=== PATIENT | female | born 1960 | race Hispanic/Latino ===

== ENCOUNTER 2017-09-08 11:03 | Inpatient (IN) | payer MEDICAID ==
[2017-09-08] MEDS ORDERED: TYLENOL ONE (12:06)
[2017-09-08] MEDS ORDERED: MORPHINE ONE ×2 (12:07→16:24)
[2017-09-08] MEDS ORDERED: NACL 0.9% 1000 ML 1,000 ML ONE (14:33)
--- NOTE | 2017-09-08 15:29 | XRay Report ---
Portable chest: Chest pain. There is a mild increase in interstitial pattern at the lung bases but there is no infiltrate or nodule. The mediastinal contour is unremarkable. There is no vascular congestion. Degenerative changes are noted in the right shoulder joint and the distal right clavicle appears absent possibly being fractured or amputated. Impression: No acute findings.
--- NOTE | 2017-09-08 15:51 | Emergency Department Report ---
ED Shortness of Breath HPI - General Chief Complaint: Dyspnea/Respdistress Stated Complaint: KAREN Time Seen by Provider: 09/08/17 15:46 Source: patient, EMS Mode of arrival: Stretcher Limitations: No Limitations - History of Present Illness MD Complaint: shortness of breath, chest pain, pain with inspiration, "asthma attack" -: Sudden, hour(s) (3 hours) Severity: severe Pain Scale: 8 Quality: throbbing Consistency: constant Improves With: oxygen, rest, bronchodilators Worsens With: lying flat, exertion, movement Known History Of: COPD, asthma Associated Symptoms: chest pain, pain with inspiration, cough, orhopnia Treatments Prior to Arrival: oxygen, bronchodilator - Related Data Home Oxygen Therapy: No Home Medications Medication Instructions Recorded Confirmed Last Taken Naproxen Sodium [Aleve] 220 mg PO Q12H PRN 09/08/17 09/08/17 Unknown One Daily Womens 50 Plus Tab 1 each PO QDAY 09/08/17 09/08/17 Unknown Allergies Allergy/AdvReac Type Severity Reaction Status Date / Time No Known Allergies Allergy Verified 02/19/14 19:44 ED Review of Systems ROS: Stated complaint: KAREN Other details as noted in HPI Comment: All other systems reviewed and negative Constitutional: malaise, weakness. denies: chills, fever Eyes: denies: eye pain, eye discharge, vision change ENT: denies: ear pain, throat pain Respiratory: cough, orthopnea, shortness of breath, SOB with exertion, wheezing Cardiovascular: chest pain. denies: palpitations Endocrine: no symptoms reported Gastrointestinal: denies: abdominal pain, nausea, diarrhea Genitourinary: denies: urgency, dysuria, discharge Musculoskeletal: denies: back pain, joint swelling, arthralgia Skin: denies: rash, lesions Neurological: weakness. denies: headache, paresthesias Psychiatric: denies: anxiety, depression Hematological/Lymphatic: denies: easy bleeding, easy bruising ED Past Medical Hx - Past Medical History Previous Medical History?: Yes Hx Congestive Heart Failure: No Hx Diabetes: No Hx Arthritis: Yes Hx Asthma: Yes Hx COPD: Yes Hx HIV: No - Surgical History Past Surgical History?: Yes Additional Surgical History: right leg surgery x2, right knee replacement, left wrist surgery x2, tubal - Family History Family history: no significant - Social History Smoking Status: Current Every Day Smoker Substance Use Type: None - Medications Home Medications: Home Medications Medication Instructions Recorded Confirmed Last Taken Type Naproxen Sodium [Aleve] 220 mg PO Q12H PRN 09/08/17 09/08/17 Unknown History One Daily Womens 50 Plus Tab 1 each PO QDAY 09/08/17 09/08/17 Unknown History ED Physical Exam - General Limitations: No Limitations General appearance: alert, in no apparent distress - Head Head exam: Present: atraumatic, normocephalic - Eye Eye exam: Present: normal appearance, other (scleral pallor) - ENT ENT exam: Present: mucous membranes dry - Neck Neck exam: Present: normal inspection - Respiratory Respiratory exam: Present: normal lung sounds bilaterally. Absent: respiratory distress, wheezes - Cardiovascular Cardiovascular Exam: Present: regular rate, normal rhythm. Absent: systolic murmur, diastolic murmur, rubs, gallop - GI/Abdominal GI/Abdominal exam: Present: soft, normal bowel sounds - Rectal Rectal exam: Present: heme (+) stool - Extremities Exam Extremities exam: Present: normal inspection - Back Exam Back exam: Present: normal inspection - Neurological Exam Neurological exam: Present: alert, oriented X3 - Psychiatric Psychiatric exam: Present: normal affect, normal mood - Skin Skin exam: Present: warm, dry, intact, normal color. Absent: rash ED Course Vital Signs 09/08/17 09/08/17 09/08/17 11:03 11:04 12:00 Temperature 97.9 F Pulse Rate 112 H 106 H 102 H Respiratory 22 24 24 Rate Blood Pressure 117/51 117/52 O2 Sat by Pulse 98 100 99 Oximetry 09/08/17 09/08/17 09/08/17 13:00 14:00 14:52 Temperature Pulse Rate 103 H 109 H Respiratory 23 19 20 Rate Blood Pressure 111/47 115/51 O2 Sat by Pulse 98 90 100 Oximetry 09/08/17 09/08/17 09/08/17 15:01 15:11 15:21 Temperature Pulse Rate 107 H 99 H 102 H Respiratory 16 20 15 Rate Blood Pressure 115/51 108/53 101/49 O2 Sat by Pulse 97 97 96 Oximetry 09/08/17 09/08/17 09/08/17 15:31 15:41 15:51 Temperature Pulse Rate 105 H 99 H 98 H Respiratory 18 20 22 Rate Blood Pressure 115/63 115/63 115/63 O2 Sat by Pulse 97 100 99 Oximetry 09/08/17 09/08/17 09/08/17 16:00 16:11 16:21 Temperature Pulse Rate 99 H 98 H 98 H Respiratory 21 20 22 Rate Blood Pressure 106/58 114/61 114/61 O2 Sat by Pulse 99 98 100 Oximetry 09/08/17 09/08/17 09/08/17 16:30 16:38 16:39 Temperature 99.0 F 98.1 F Pulse Rate 100 H 97 H 92 H Respiratory 13 20 23 Rate Blood Pressure 122/66 122/66 122/66 O2 Sat by Pulse 98 99 100 Oximetry 09/08/17 09/08/17 09/08/17 16:41 16:51 16:54 Temperature 98.4 F Pulse Rate 98 H 98 H 92 H Respiratory 21 20 19 Rate Blood Pressure 122/66 122/66 118/68 O2 Sat by Pulse 98 100 100 Oximetry 09/08/17 09/08/17 17:01 17:37 Temperature Pulse Rate 95 H Respiratory 22 18 Rate Blood Pressure 98/51 O2 Sat by Pulse 100 Oximetry - Reevaluation(s) Reevaluation #1: [place] extremely low. Will type and screen patient and prepare for transfusion. 09/08/17 12:00 Reevaluation #2: Hospitalist consult for admission. Hospitalist agreed to admit 09/08/17 14:00 ED Medical Decision Making - Lab Data Result diagrams: 09/08/17 12:40 09/08/17 12:11 - Radiology Data Radiology results: image reviewed interpreted by me: No acute findings - Medical Decision Making Patient 56-year-old presents emergency room with acute copd exacerbation, and chest pain shortness of breath. Patient found to be severely anemic. Will admit patient for further evaluation and treatment of her anemia and rule out ACS. Patient currently receiving packed red blood cells in ER. Hospitalist consult for admission - Differential Diagnosis cp/ acs. sob. copd exac. Critical care attestation.: If time is entered above; I have spent that time in minutes in the direct care of this critically ill patient, excluding procedure time. ED Disposition Clinical Impression: Chest pain, Anemia, Shortness of breath, GI bleed Disposition: OP ADMIT IP TO THIS HOSP Is pt being admited?: Yes Does the pt Need Aspirin: No Condition: Critical Time of Disposition: :10
[2017-09-08] MEDS ORDERED: MORPHINE IV ONE (16:40)
[2017-09-08 16:53] LABS: Alanine Aminotransferase 13 units/L (7-56); Albumin 2.7 g/dL (3.9-5); BUN/Creatinine Ratio 26; Blood Urea Nitrogen 18 mg/dL (7-17); Calcium 8.3 mg/dL (8.4-10.2); Creatine Kinase MB 1.5 ng/mL (0.0-4.0); Hemolysis Index 1
[2017-09-08] MEDS ORDERED: DILAUDID IV PRN (16:53)
[2017-09-08] MEDS ORDERED: SODIUM CHLORIDE FLUSH SYRINGE 10 ML IV PRN (16:53)
[2017-09-08] MEDS ORDERED: ZOFRAN IV PRN (16:53)
[2017-09-08] MEDS ORDERED: TYLENOL PO PRN (16:53)
--- NOTE | 2017-09-08 16:53 | History and Physical Report ---
History of Present Illness Date of examination: 09/08/17 Date of admission: 09/08/2017 Chief complaint: Chief complaint: Dyspnea on minimal exertion History of present illness: History of Present Illness: 56-year-old female comes in for shortness of breath for minimal exertion. Also chest pain on exertion. No recent travel. No fever chills. No history of asthma. Patient has history of severe rheumatoid arthritis with deformities of the wrist and the hand. Not taking any disease modifying agents. Takes naproxen on a regular basis. No tarry stools. No hematemesis. Gets fatigued easily. Chest pain about 5 on a scale of 1-10. No diaphoresis or palpitations. ED Past Medical Hx Past Medical History Previous Medical History?: Yes Hx Arthritis: Yes Hx Asthma: Yes Hx COPD: Yes - Surgical History Past Surgical History?: Yes Additional Surgical History: right leg surgery x2, right knee replacement, left wrist surgery x2, tubal - Family History Family history: no significant - Social History Smoking Status: Current Every Day Smoker Substance Use Type: None - Medications Home Medications: Home Medications Medication Instructions Recorded Confirmed Last Taken Type Naproxen Sodium [Aleve] 220 mg PO Q12H PRN 09/08/17 09/08/17 Unknown History One Daily Womens 50 Plus Tab 1 each PO QDAY 09/08/17 09/08/17 Unknown History Review of Systems ROS: Stated complaint: KAREN Other details as noted in HPI Comment: All other systems reviewed and negative Constitutional: malaise, weakness. denies: chills, fever Eyes: denies: eye pain, eye discharge, vision change ENT: denies: ear pain, throat pain Respiratory: cough, orthopnea, shortness of breath, SOB with exertion, wheezing Cardiovascular: chest pain. denies: palpitations Endocrine: no symptoms reported Gastrointestinal: denies: abdominal pain, nausea, diarrhea Genitourinary: denies: urgency, dysuria, discharge Musculoskeletal: denies: back pain, joint swelling, arthralgia Skin: denies: rash, lesions Neurological: weakness. denies: headache, paresthesias Psychiatric: denies: anxiety, depression Hematological/Lymphatic: denies: easy bleeding, easy bruising Medications and Allergies Allergies Allergy/AdvReac Type Severity Reaction Status Date / Time No Known Allergies Allergy Verified 02/19/14 19:44 Home Medications Medication Instructions Recorded Confirmed Last Taken Type Naproxen Sodium [Aleve] 220 mg PO Q12H PRN 09/08/17 09/08/17 09/07/17 History One Daily Womens 50 Plus Tab 1 each PO QDAY 09/08/17 09/08/17 09/07/17 History Exam - Physical Exam Narrative exam: Lying in bed in slight respiratory distress and uncomfortable - Constitutional Vitals: Temp Pulse Resp BP Pulse Ox 99.0 F 97 H 20 122/66 99 09/08/17 16:38 09/08/17 16:38 09/08/17 16:38 09/08/17 16:38 09/08/17 16:38 General appearance: Present: mild distress, well-nourished - EENT Eyes: Present: PERRL ENT: hearing intact, clear oral mucosa, other (pale mucous membranes) - Neck Neck: Present: supple, normal ROM - Respiratory Respiratory effort: normal Respiratory: bilateral: CTA - Cardiovascular Heart rate: 100 Rhythm: regular Heart Sounds: Present: S1 & S2. Absent: rub, click - Extremities Extremities: no ischemia, pulses intact, pulses symmetrical, No edema Peripheral Pulses: within normal limits - Abdominal General gastrointestinal: Present: soft, non-tender, non-distended, normal bowel sounds Female genitourinary: Present: normal - Rectal Rectal Exam: stool dark, other (occult blood positive) - Integumentary Integumentary: Present: clear, warm, dry - Musculoskeletal Musculoskeletal: strength equal bilaterally, generalized weakness, other ( wrists deformed and rheumatoid nodule present on the right wrist. Rheumatoid arthritis changes in both hands especially the wrist and fingers.) - Psychiatric Psychiatric: appropriate mood/affect, intact judgment & insight - Neurologic Neurologic: CNII-XII intact, moves all extremities Results - Labs CBC & Chem 7: 09/08/17 12:40 09/08/17 12:11 Labs: Laboratory Last Values Blood Type A POSITIVE 09/08/17 12:40 Antibody Screen Negative 09/08/17 12:40 Crossmatch See Detail 09/08/17 12:40 Short CBC 09/08/17 09/08/17 Range/Units 12:11 12:40 WBC 11.2 H 11.2 H (4.5-11.0) K/mm3 Hgb 3.3 L* 3.4 L* (10.1-14.3) gm/dl Hct 12.4 L* 12.4 L* (30.3-42.9) % Plt Count 684 H 687 H (140-440) K/mm3 BMP 09/08/17 12:11 Sodium 134 L Potassium 4.8 Chloride 93.5 L Carbon Dioxide 22 BUN 18 H Creatinine 0.7 Glucose 125 H Calcium 8.3 L Cardiac Enzymes 09/08/17 Range/Units 12:11 CK-MB (CK-2) 1.5 (0.0-4.0) ng/mL Troponin T < 0.010 (0.00-0.029) ng/mL Liver Function 09/08/17 Range/Units 12:11 Total Bilirubin 0.20 (0.1-1.2) mg/dL AST 23 (5-40) units/L ALT 13 (7-56) units/L Alkaline Phosphatase 143 H (35-129) units/L Albumin 2.7 L (3.9-5) g/dL - Imaging and Cardiology EKG: report reviewed (sinus tachycardia) Imaging and Cardiology: Chest x-ray No acute findings No infiltrate Degenerative changes in the right shoulder joint and distal right clavicle Possibly being fractured are amputated Assessment and Plan Advance Directives: Yes (full code) VTE prophylaxis?: Mechanical Contraindication Mechanical VTE Prophylaxis: Contraindicated Plan of care discussed with patient/family: Yes - Patient Problems (1) Acute blood loss anemia Current Visit: Yes Status: Acute Plan to address problem: 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 Occult blood was positive. Patient may be having gastroesophageal erosions. We'll start her on proton pump inhibitors. Transfuse 2-4 units of packed red blood cells (2) Chest pain Current Visit: Yes Status: Acute Qualifiers: Chest pain type: unspecified Qualified Code(s): R07.9 - Chest pain, unspecified Plan to address problem: Chest pain probably secondary to severe anemia. Will get Lexiscan on day 3 after transfusions. (3) Rheumatoid arthritis Current Visit: Yes Status: Chronic Qualifiers: Rheumatoid arthritis location: hand Laterality: bilateral Plan to address problem: Patient may need to be on disease modifying agents like methotrexate. We will defer to hospitalist team. Sedimentation rate A N A dsDNA and CCP ordered follow-up on the results (4) Malnutrition Current Visit: Yes Status: Chronic Qualifiers: Protein-calorie malnutrition severity: moderate Plan to address problem: dietary consult (5) DVT prophylaxis Current Visit: Yes Status: Acute Plan to address problem: Only SCDs
[2017-09-08] MEDS ORDERED: NACL 0.9% 500 ML 500 ML IV SCH (16:58)
[2017-09-08 17:10] LABS: Red Blood Count 1.88 M/mm3 (3.65-5.03)
[2017-09-08 17:11] LABS: Basophils # (Auto) 0.1 K/mm3 (0.0-0.1); Basophils % (Auto) 0.5 % (0.0-1.8); Eosinophils # (Auto) 0.1 K/mm3 (0.0-0.4); Eosinophils % (Auto) 1.2 % (0.0-4.3); Lymphocytes # (Auto) 1.7 K/mm3 (1.2-5.4); Mean Corpuscular HGB Conc 26 % (30-34); Mean Corpuscular Hemoglobin 18 pg (28-32); Mean Corpuscular Volume 66 fl (79-97); Monocytes # (Auto) 0.8 K/mm3 (0.0-0.8); Monocytes % (Auto) 6.5 % (0.0-7.3); Platelet Count 684 K/mm3 (140-440); Red Cell Distribution Width 21.2 % (13.2-15.2)
[2017-09-08 17:12] LABS: Hematocrit 12.4 % (30.3-42.9); Hemoglobin 3.3 gm/dl (10.1-14.3)
[2017-09-08 17:15] LABS: Red Blood Count 1.88 M/mm3 (3.65-5.03)
[2017-09-08 17:16] LABS: Basophils % (Auto) 0.4 % (0.0-1.8); Eosinophils # (Auto) 0.1 K/mm3 (0.0-0.4); Eosinophils % (Auto) 1.1 % (0.0-4.3); Hematocrit 12.4 % (30.3-42.9); Hemoglobin 3.4 gm/dl (10.1-14.3); Lymphocytes # (Auto) 1.5 K/mm3 (1.2-5.4); Lymphocytes % (Auto) 13.1 % (13.4-35.0); Mean Corpuscular HGB Conc 27 % (30-34); Mean Corpuscular Hemoglobin 18 pg (28-32); Mean Corpuscular Volume 66 fl (79-97); Monocytes # (Auto) 0.8 K/mm3 (0.0-0.8); Monocytes % (Auto) 6.9 % (0.0-7.3); Platelet Count 687 K/mm3 (140-440); Red Cell Distribution Width 21.5 % (13.2-15.2)
[2017-09-08] MEDS: PERCOCET 5/325 PO PRN (20:13)
[2017-09-08] MEDS: SODIUM CHLORIDE FLUSH SYRINGE 10 ML IV SCH (23:37)
[2017-09-09] MEDS: MORPHINE IV PRN ×4 (00:21→16:09)
[2017-09-09 06:27] LABS: Hematocrit 29.9 % (30.3-42.9); Hemoglobin 9.7 gm/dl (10.1-14.3); Mean Corpuscular HGB Conc 33 % (30-34); Mean Corpuscular Volume 77 fl (79-97); Platelet Count 573 K/mm3 (140-440); Red Blood Count 3.86 M/mm3 (3.65-5.03)
[2017-09-09 06:41] LABS: Mean Corpuscular Hemoglobin 25 pg (28-32); Red Cell Distribution Width 24.1 % (13.2-15.2)
[2017-09-09] MEDS: PROTONIX IV SCH ×2 (06:52→22:27)
[2017-09-09 07:26] LABS: Hematocrit 28.6 % (30.3-42.9); Hemoglobin 9.3 gm/dl (10.1-14.3); Mean Corpuscular HGB Conc 33 % (30-34); Mean Corpuscular Volume 78 fl (79-97); Platelet Count 504 K/mm3 (140-440); Red Blood Count 3.69 M/mm3 (3.65-5.03)
[2017-09-09 07:58] LABS: Alanine Aminotransferase 11 units/L (7-56); Albumin 2.7 g/dL (3.9-5); BUN/Creatinine Ratio 18; Blood Urea Nitrogen 11 mg/dL (7-17); Calcium 8.4 mg/dL (8.4-10.2); Hemolysis Index 6
[2017-09-09 08:06] LABS: Mean Corpuscular Hemoglobin 25 pg (28-32); Red Cell Distribution Width 23.7 % (13.2-15.2)
[2017-09-09 08:22] LABS: Erythrocyte Sedimentation Rate 1 mm/Hr (0-20)
--- NOTE | 2017-09-09 09:16 | Gastroenterology Consultation ---
<ERIKA GRANDE - Last Filed: 09/09/17 09:34> History of Present Illness - Reason for Consult Consult date: 09/09/17 anemia Requesting physician: JEEVAN PAZ - History of Present Illness Patient is a 56 y/o female with PMH of rheumatoid arthritis, nicotine dependence , and COPD who presented to ED with c/o SOB and CP. She was found to be severely anemia with HGB of 3.4. Stress test pending. This morning pt was resting in bed in mild distress with family at bedside reporting continued CP. No active signs of bleeding such as hematemesis, melena, or hematochezia. Admits to wt loss of approximately 30lbs in the last couple of months and occasional dysphagia to solids but denies any dizziness, fever, abd pain, N/V, odynophagia, heartburn, diarrhea, or constipation. Takes Naproxen daily. No hx of PUD. No previous EGD. Last colonoscopy [address] Burroughs that revealed polyps , diverticulosis, and internal hemorrhoids. No Fhx of GI cancers. Past History Past Medical History: arthritis (rheumatoid), COPD Past Surgical History: Other (right knee, right leg, left wrist, tubal) Social history: smoking Family history: no significant family history Medications and Allergies Allergies Allergy/AdvReac Type Severity Reaction Status Date / Time No Known Allergies Allergy Verified 02/19/14 19:44 Home Medications Medication Instructions Recorded Confirmed Last Taken Type Naproxen Sodium [Aleve] 220 mg PO Q12H PRN 09/08/17 09/08/17 09/07/17 History One Daily Womens 50 Plus Tab 1 each PO QDAY 09/08/17 09/08/17 09/07/17 History Active Meds: Active Medications Acetaminophen (Tylenol) 650 mg PO Q4H PRN PRN Reason: Pain MILD(1-3)/Fever >100.5/GARCIA Hydromorphone HCl (Dilaudid) 0.5 mg IV Q3H PRN PRN Reason: Pain , Severe (7-10) Influenza Virus Vaccine Quadrival (Fluarix Quad [id number](36 Mos+) 0.5 ml IM .ONCE ONE Stop: 09/09/17 12:01 Morphine Sulfate (Morphine) 2 mg IV Q4H PRN PRN Reason: Pain, Moderate (4-6) Last Admin: 09/09/17 04:42 Dose: 2 mg Ondansetron HCl (Zofran) 4 mg IV Q8H PRN PRN Reason: Nausea And Vomiting Oxycodone/Acetaminophen (Percocet 5/325) 1 tab PO Q6H PRN PRN Reason: Pain, Moderate (4-6) Last Admin: 09/08/17 20:13 Dose: 1 tab Pantoprazole Sodium (Protonix) 40 mg IV BID [facility] Last Admin: 09/09/17 06:52 Dose: 40 mg Sodium Chloride (Sodium Chloride Flush Syringe 10 Ml) 10 ml IV BID [facility] Last Admin: 09/08/17 23:37 Dose: 10 ml Sodium Chloride (Sodium Chloride Flush Syringe 10 Ml) 10 ml IV PRN PRN PRN Reason: LINE FLUSH Review of Systems - Review of Systems All systems: negative Constitutional: weight loss Cardiovascular: chest pain Respiratory: shortness of breath Gastrointestinal: other (dysphagia) Exam - Constitutional Vital Signs: Temp Pulse Resp BP Pulse Ox 98.1 F 88 18 145/68 99 09/09/17 07:32 09/09/17 07:32 09/09/17 07:32 09/09/17 07:32 09/09/17 07:32 General appearance: mild distress, other (thin appearing) - EENT Eyes: PERRL, EOM intact ENT: hearing intact - Respiratory Respiratory: bilateral: CTA - Cardiovascular Rhythm: regular Heart Sounds: Present: S1 & S2 - Gastrointestinal General gastrointestinal: Present: soft, non-tender, non-distended, normal bowel sounds - Musculoskeletal Musculoskeletal: other (hands and wrist deformity) - Neurologic Neurological: alert and oriented x3 - Labs CBC & Chem 7: 09/09/17 07:10 09/09/17 07:10 Lab Results: Laboratory Results - last 24 hr 09/08/17 09/08/17 09/08/17 12:11 12:11 12:11 WBC 11.2 H RBC 1.88 L Hgb 3.3 L* Hct 12.4 L* MCV 66 L MCH 18 L MCHC 26 L RDW 21.2 H Plt Count 684 H Lymph % (Auto) 15.0 [place] % (Auto) 6.5 Eos % (Auto) 1.2 Baso % (Auto) 0.5 Lymph # 1.7 [place] # 0.8 Eos # 0.1 Baso # 0.1 Seg Neutrophils % 76.8 H Seg Neutrophils # 8.6 H ESR D-Dimer 4602.55 H Sodium 134 L Potassium 4.8 Chloride 93.5 L Carbon Dioxide 22 Anion Gap 23 BUN 18 H Creatinine 0.7 Estimated GFR > 60 BUN/Creatinine Ratio 26 Glucose 125 H Hemoglobin A1c Calcium 8.3 L Total Bilirubin 0.20 AST 23 ALT 13 Alkaline Phosphatase 143 H CK-MB (CK-2) 1.5 Troponin T < 0.010 NT-Pro-B Natriuret Pep 1310 H Total Protein 7.5 Albumin 2.7 L Albumin/Globulin Ratio 0.6 Rheumatoid Factor Blood Type Antibody Screen Crossmatch 09/08/17 09/08/17 09/08/17 12:40 12:40 17:08 WBC 11.2 H RBC 1.88 L Hgb 3.4 L* Hct 12.4 L* MCV 66 L MCH 18 L MCHC 27 L RDW 21.5 H Plt Count 687 H Lymph % (Auto) 13.1 L [place] % (Auto) 6.9 Eos % (Auto) 1.1 Baso % (Auto) 0.4 Lymph # 1.5 [place] # 0.8 Eos # 0.1 Baso # 0.0 Seg Neutrophils % 78.5 H Seg Neutrophils # 8.8 H ESR D-Dimer Sodium Potassium Chloride Carbon Dioxide Anion Gap BUN Creatinine Estimated GFR BUN/Creatinine Ratio Glucose Hemoglobin A1c < 4.2 Calcium Total Bilirubin AST ALT Alkaline Phosphatase CK-MB (CK-2) Troponin T NT-Pro-B Natriuret Pep Total Protein Albumin Albumin/Globulin Ratio Rheumatoid Factor Blood Type A POSITIVE Antibody Screen Negative Crossmatch See Detail 09/09/17 09/09/17 09/09/17 06:10 07:10 07:10 WBC 10.6 11.0 RBC 3.86 3.69 Hgb 9.7 L D 9.3 L Hct 29.9 L D 28.6 L MCV 77 L 78 L MCH 25 L 25 L MCHC 33 33 RDW 24.1 H 23.7 H Plt Count 573 H 504 H Lymph % (Auto) [place] % (Auto) Eos % (Auto) Baso % (Auto) Lymph # [place] # Eos # Baso # Seg Neutrophils % Seg Neutrophils # ESR 1 D-Dimer Sodium Potassium Chloride Carbon Dioxide Anion Gap BUN Creatinine Estimated GFR BUN/Creatinine Ratio Glucose Hemoglobin A1c Calcium Total Bilirubin AST ALT Alkaline Phosphatase CK-MB (CK-2) Troponin T NT-Pro-B Natriuret Pep Total Protein Albumin Albumin/Globulin Ratio Rheumatoid Factor 623 H Blood Type Antibody Screen Crossmatch 09/09/17 07:10 WBC RBC Hgb Hct MCV MCH MCHC RDW Plt Count Lymph % (Auto) [place] % (Auto) Eos % (Auto) Baso % (Auto) Lymph # [place] # Eos # Baso # Seg Neutrophils % Seg Neutrophils # ESR D-Dimer Sodium 133 L Potassium 5.3 H Chloride 97.1 L Carbon Dioxide 23 Anion Gap 18 BUN 11 Creatinine 0.6 L Estimated GFR > 60 BUN/Creatinine Ratio 18 Glucose 96 Hemoglobin A1c Calcium 8.4 Total Bilirubin 0.50 AST 21 ALT 11 Alkaline Phosphatase 160 H CK-MB (CK-2) Troponin T NT-Pro-B Natriuret Pep Total Protein 7.3 Albumin 2.7 L Albumin/Globulin Ratio 0.6 Rheumatoid Factor Blood Type Antibody Screen Crossmatch Assessment and Plan 1.anemia 2.CP 3.rheumatoid arthritis 4.COPD 5.wt loss 6.dysphagia -stool occult positive -HGB 3.4 on admission, now 9.3 s/p transfusion of 4 units PRBCs -continue to monitor H/H and transfuse as needed -no active signs of bleeding -currently HD stable -stress test pending for today -etiology of anemia unclear -last colonoscopy 2009 revealed polyps, diverticulosis, and internal hemorrhoids -recommend EGD and colonoscopy once cleared by cardiology -continue PPI and supportive care -will follow <RAÚL ESQUIVEL - Last Filed: 09/09/17 13:06> Medications and Allergies Active Meds: Active Medications Acetaminophen (Tylenol) 650 mg PO Q4H PRN PRN Reason: Pain MILD(1-3)/Fever >100.5/GARCIA Hydromorphone HCl (Dilaudid) 0.5 mg IV Q3H PRN PRN Reason: Pain , Severe (7-10) Morphine Sulfate (Morphine) 2 mg IV Q4H PRN PRN Reason: Pain, Moderate (4-6) Last Admin: 09/09/17 10:48 Dose: 2 mg Ondansetron HCl (Zofran) 4 mg IV Q8H PRN PRN Reason: Nausea And Vomiting Oxycodone/Acetaminophen (Percocet 5/325) 1 tab PO Q6H PRN PRN Reason: Pain, Moderate (4-6) Last Admin: 09/08/17 20:13 Dose: 1 tab Pantoprazole Sodium (Protonix) 40 mg IV BID [facility] Last Admin: 09/09/17 06:52 Dose: 40 mg Sodium Chloride (Sodium Chloride Flush Syringe 10 Ml) 10 ml IV BID [facility] Last Admin: 09/08/17 23:37 Dose: 10 ml Sodium Chloride (Sodium Chloride Flush Syringe 10 Ml) 10 ml IV PRN PRN PRN Reason: LINE FLUSH Exam - Constitutional Vital Signs: Temp Pulse Resp BP Pulse Ox 98.2 F 92 H 18 140/70 97 09/09/17 11:15 09/09/17 11:15 09/09/17 11:15 09/09/17 11:15 09/09/17 11:15 - Labs CBC & Chem 7: 09/09/17 07:10 09/09/17 07:10 Lab Results: Laboratory Results - last 24 hr 09/08/17 09/08/17 09/08/17 12:11 12:11 12:11 WBC 11.2 H RBC 1.88 L Hgb 3.3 L* Hct 12.4 L* MCV 66 L MCH 18 L MCHC 26 L RDW 21.2 H Plt Count 684 H Lymph % (Auto) 15.0 [place] % (Auto) 6.5 Eos % (Auto) 1.2 Baso % (Auto) 0.5 Lymph # 1.7 [place] # 0.8 Eos # 0.1 Baso # 0.1 Add Manual Diff Total Counted Seg Neutrophils % 76.8 H Seg Neuts % (Manual) Band Neutrophils % Lymphocytes % (Manual) Reactive Lymphs % (Man) Monocytes % (Manual) Eosinophils % (Manual) Basophils % (Manual) Metamyelocytes % Myelocytes % Promyelocytes % Blast Cells % Nucleated RBC % Seg Neutrophils # 8.6 H Seg Neutrophils # Man Band Neutrophils # Lymphocytes # (Manual) Abs React Lymphs (Man) Monocytes # (Manual) Eosinophils # (Manual) Basophils # (Manual) Metamyelocytes # Myelocytes # Promyelocytes # Blast Cells # WBC Morphology Hypersegmented Neuts Hyposegmented Neuts Hypogranular Neuts Smudge Cells Toxic Granulation Toxic Vacuolation Dohle Bodies Pelger-Huet Anomaly Robbie Rods Platelet Estimate Clumped Platelets Plt Clumps, EDTA Large Platelets Giant Platelets Platelet Satelliting Plt Morphology Comment RBC Morphology Dimorphic RBCs Polychromasia Hypochromasia Poikilocytosis Anisocytosis Microcytosis Macrocytosis Spherocytes Pappenheimer Bodies Sickle Cells Target Cells Tear Drop Cells Ovalocytes Helmet Cells Thomas-Ravine Bodies [place] Rings [place] Cells Bite Cells Crenated Cell Elliptocytes Acanthocytes (Spur) Rouleaux Hemoglobin C Crystals Schistocytes Malaria parasites ESR Phillip Bodies Hem Pathologist Commnt D-Dimer 4602.55 H Sodium 134 L Potassium 4.8 Chloride 93.5 L Carbon Dioxide 22 Anion Gap 23 BUN 18 H Creatinine 0.7 Estimated GFR > 60 BUN/Creatinine Ratio 26 Glucose 125 H Hemoglobin A1c Calcium 8.3 L Total Bilirubin 0.20 AST 23 ALT 13 Alkaline Phosphatase 143 H CK-MB (CK-2) 1.5 Troponin T < 0.010 NT-Pro-B Natriuret Pep 1310 H Total Protein 7.5 Albumin 2.7 L Albumin/Globulin Ratio 0.6 Rheumatoid Factor Blood Type Antibody Screen Crossmatch 09/08/17 09/08/17 09/08/17 12:40 12:40 17:08 WBC 11.2 H RBC 1.88 L Hgb 3.4 L* Hct 12.4 L* MCV 66 L MCH 18 L MCHC 27 L RDW 21.5 H Plt Count 687 H Lymph % (Auto) 13.1 L [place] % (Auto) 6.9 Eos % (Auto) 1.1 Baso % (Auto) 0.4 Lymph # 1.5 [place] # 0.8 Eos # 0.1 Baso # 0.0 Add Manual Diff Total Counted Seg Neutrophils % 78.5 H Seg Neuts % (Manual) Band Neutrophils % Lymphocytes % (Manual) Reactive Lymphs % (Man) Monocytes % (Manual) Eosinophils % (Manual) Basophils % (Manual) Metamyelocytes % Myelocytes % Promyelocytes % Blast Cells % Nucleated RBC % Seg Neutrophils # 8.8 H Seg Neutrophils # Man Band Neutrophils # Lymphocytes # (Manual) Abs React Lymphs (Man) Monocytes # (Manual) Eosinophils # (Manual) Basophils # (Manual) Metamyelocytes # Myelocytes # Promyelocytes # Blast Cells # WBC Morphology Hypersegmented Neuts Hyposegmented Neuts Hypogranular Neuts Smudge Cells Toxic Granulation Toxic Vacuolation Dohle Bodies Pelger-Huet Anomaly Robbie Rods Platelet Estimate Clumped Platelets Plt Clumps, EDTA Large Platelets Giant Platelets Platelet Satelliting Plt Morphology Comment RBC Morphology Dimorphic RBCs Polychromasia Hypochromasia Poikilocytosis Anisocytosis Microcytosis Macrocytosis Spherocytes Pappenheimer Bodies Sickle Cells Target Cells Tear Drop Cells Ovalocytes Helmet Cells Thomas-Ravine Bodies [place] Rings Nikos Cells Bite Cells Crenated Cell Elliptocytes Acanthocytes (Spur) Rouleaux Hemoglobin C Crystals Schistocytes Malaria parasites ESR Phillip Bodies Hem Pathologist Commnt D-Dimer Sodium Potassium Chloride Carbon Dioxide Anion Gap BUN Creatinine Estimated GFR BUN/Creatinine Ratio Glucose Hemoglobin A1c < 4.2 Calcium Total Bilirubin AST ALT Alkaline Phosphatase CK-MB (CK-2) Troponin T NT-Pro-B Natriuret Pep Total Protein Albumin Albumin/Globulin Ratio Rheumatoid Factor Blood Type A POSITIVE Antibody Screen Negative Crossmatch See Detail 09/09/17 09/09/17 09/09/17 06:10 07:10 07:10 WBC 10.6 11.0 RBC 3.86 3.69 Hgb 9.7 L D 9.3 L Hct 29.9 L D 28.6 L MCV 77 L 78 L MCH 25 L 25 L MCHC 33 33 RDW 24.1 H 23.7 H Plt Count 573 H 504 H Lymph % (Auto) [place] % (Auto) Eos % (Auto) Baso % (Auto) Lymph # [place] # Eos # Baso # Add Manual Diff Complete Total Counted 100 Seg Neutrophils % Seg Neuts % (Manual) 86.0 H Band Neutrophils % 0 Lymphocytes % (Manual) 6.0 L Reactive Lymphs % (Man) 0 Monocytes % (Manual) 8.0 H Eosinophils % (Manual) 0 Basophils % (Manual) 0 Metamyelocytes % 0 Myelocytes % 0 Promyelocytes % 0 Blast Cells % 0 Nucleated RBC % Not Reportable Seg Neutrophils # Seg Neutrophils # Man 9.1 H Band Neutrophils # 0.0 Lymphocytes # (Manual) 0.6 L Abs React Lymphs (Man) 0.0 Monocytes # (Manual) 0.8 Eosinophils # (Manual) 0.0 Basophils # (Manual) 0.0 Metamyelocytes # 0.0 Myelocytes # 0.0 Promyelocytes # 0.0 Blast Cells # 0.0 WBC Morphology Not Reportable Hypersegmented Neuts Not Reportable Hyposegmented Neuts Not Reportable Hypogranular Neuts Not Reportable Smudge Cells Not Reportable Toxic Granulation Not Reportable Toxic Vacuolation Not Reportable Dohle Bodies Not Reportable Pelger-Huet Anomaly Not Reportable Robbie Rods Not Reportable Platelet Estimate Appears normal Clumped Platelets Not Reportable Plt Clumps, EDTA Not Reportable Large Platelets Not Reportable Giant Platelets Not Reportable Platelet Satelliting Not Reportable Plt Morphology Comment Not Reportable RBC Morphology Not Reportable Dimorphic RBCs Not Reportable Polychromasia Not Reportable Hypochromasia 1+ Poikilocytosis Not Reportable Anisocytosis 2+ Microcytosis 1+ Macrocytosis 1+ Spherocytes Not Reportable Pappenheimer Bodies Not Reportable Sickle Cells Not Reportable Target Cells Not Reportable Tear Drop Cells Not Reportable Ovalocytes Not Reportable Helmet Cells Not Reportable Thomas-Ravine Bodies Not Reportable [place] Rings Not Reportable [place] Cells Not Reportable Bite Cells Not Reportable Crenated Cell Not Reportable Elliptocytes Not Reportable Acanthocytes (Spur) Not Reportable Rouleaux Not Reportable Hemoglobin C Crystals Not Reportable Schistocytes Not Reportable Malaria parasites Not Reportable ESR 1 Phillip Bodies Not Reportable Hem Pathologist Commnt No D-Dimer Sodium Potassium Chloride Carbon Dioxide Anion Gap BUN Creatinine Estimated GFR BUN/Creatinine Ratio Glucose Hemoglobin A1c Calcium Total Bilirubin AST ALT Alkaline Phosphatase CK-MB (CK-2) Troponin T NT-Pro-B Natriuret Pep Total Protein Albumin Albumin/Globulin Ratio Rheumatoid Factor 623 H Blood Type Antibody Screen Crossmatch 09/09/17 09/09/17 07:10 09:24 WBC RBC Hgb Hct MCV MCH MCHC RDW Plt Count Lymph % (Auto) [place] % (Auto) Eos % (Auto) Baso % (Auto) Lymph # [place] # Eos # Baso # Add Manual Diff Total Counted Seg Neutrophils % Seg Neuts % (Manual) Band Neutrophils % Lymphocytes % (Manual) Reactive Lymphs % (Man) Monocytes % (Manual) Eosinophils % (Manual) Basophils % (Manual) Metamyelocytes % Myelocytes % Promyelocytes % Blast Cells % Nucleated RBC % Seg Neutrophils # Seg Neutrophils # Man Band Neutrophils # Lymphocytes # (Manual) Abs React Lymphs (Man) Monocytes # (Manual) Eosinophils # (Manual) Basophils # (Manual) Metamyelocytes # Myelocytes # Promyelocytes # Blast Cells # WBC Morphology Hypersegmented Neuts Hyposegmented Neuts Hypogranular Neuts Smudge Cells Toxic Granulation Toxic Vacuolation Dohle Bodies Pelger-Huet Anomaly Robbie Rods Platelet Estimate Clumped Platelets Plt Clumps, EDTA Large Platelets Giant Platelets Platelet Satelliting Plt Morphology Comment RBC Morphology Dimorphic RBCs Polychromasia Hypochromasia Poikilocytosis Anisocytosis Microcytosis Macrocytosis Spherocytes Pappenheimer Bodies Sickle Cells Target Cells Tear Drop Cells Ovalocytes Helmet Cells Thomas-Ravine Bodies [place] Rings [place] Cells Bite Cells Crenated Cell Elliptocytes Acanthocytes (Spur) Rouleaux Hemoglobin C Crystals Schistocytes Malaria parasites ESR Phillip Bodies Hem Pathologist Commnt D-Dimer Sodium 133 L Potassium 5.3 H Chloride 97.1 L Carbon Dioxide 23 Anion Gap 18 BUN 11 Creatinine 0.6 L Estimated GFR > 60 BUN/Creatinine Ratio 18 Glucose 96 Hemoglobin A1c Calcium 8.4 Total Bilirubin 0.50 AST 21 ALT 11 Alkaline Phosphatase 160 H CK-MB (CK-2) Troponin T < 0.010 NT-Pro-B Natriuret Pep Total Protein 7.3 Albumin 2.7 L Albumin/Globulin Ratio 0.6 Rheumatoid Factor Blood Type Antibody Screen Crossmatch Assessment and Plan 1. Iron def anemia - likely due to NSAID use and a large hiatal hernia noted on CT in 2013. Neoplastic process or PUD need to be excluded. No acute bleeding. 2. 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 Need to exclude neoplastic process.
[2017-09-09 11:09] LABS: Basophils % (Manual) 0 % (0.0-1.8); Eosinophils % (Manual) 0 % (0.0-4.3); Total Cells Counted 100
[2017-09-09 11:10] LABS: Hypochromasia 1+
[2017-09-09 11:11] LABS: Anisocytosis 2+
[2017-09-09 11:12] LABS: Macrocytosis 1+
[2017-09-09] MEDS ORDERED: Fluarix Quad 2017-2018(36 MOS+ IM ONE (12:00)
[2017-09-09] MEDS ORDERED: PROVENTIL IH PRN (13:28)
--- NOTE | 2017-09-09 13:40 | Progress Note ---
Assessment and Plan Assessment and plan: Severe anemia secondary to GI bleed due to NSAID use - Patient was transfused with packed RBCs - Post transfusion hemoglobin is 9.2 Cachexia - We will going to do CT abdomen, pelvis and chest to rule out malignancy Respiratory failure - Secondary to ?COPD - Breathing treatment, oxygen support Active smoker - Patient is counseled DVT prophylaxis Disposition - Possible discharge tomorrow, Patient has difficulty breathing History Interval history: Patient was seen and evaluated this morning, patient has difficulty breathing. Patient is cachectic. Hospitalist Physical - Physical exam Narrative exam: Not in cardiopulmonary distress. The patient appeared cachectic. Vital signs as documented. Head exam is unremarkable. No scleral icterus . Neck is without jugular venous distension, thyromegaly, or carotid bruits. Lungs are clear to auscultation. Cardiac exam reveals regular rate and Rhythm. Abdominal exam reveals normal bowel sounds, no masses, no organomegaly and no aortic enlargement. Extremities are nonedematous and both femoral and pedal pulses are normal. SERVICE CENTER ASSISTANT: Alert and oriented 3. No focal weakness. - Constitutional Vitals: Temp Pulse Resp BP Pulse Ox 98.2 F 92 H 18 140/70 97 09/09/17 11:15 09/09/17 11:15 09/09/17 11:15 09/09/17 11:15 09/09/17 11:15 General appearance: Present: mild distress, well-nourished Results - Labs CBC & Chem 7: 09/09/17 07:10 09/09/17 07:10 Labs: Laboratory Last Values WBC 11.0 K/mm3 (4.5-11.0) 09/09/17 07:10 RBC 3.69 M/mm3 (3.65-5.03) 09/09/17 07:10 Hgb 9.3 gm/dl (10.1-14.3) L 09/09/17 07:10 Hct 28.6 % (30.3-42.9) L 09/09/17 07:10 MCV 78 fl (79-97) L 09/09/17 07:10 MCH 25 pg (28-32) L 09/09/17 07:10 MCHC 33 % (30-34) 09/09/17 07:10 RDW 23.7 % (13.2-15.2) H 09/09/17 07:10 Plt Count 504 K/mm3 (140-440) H 09/09/17 07:10 Lymph % (Auto) 13.1 % (13.4-35.0) L 09/08/17 12:40 [place] % (Auto) 6.9 % (0.0-7.3) 09/08/17 12:40 Eos % (Auto) 1.1 % (0.0-4.3) 09/08/17 12:40 Baso % (Auto) 0.4 % (0.0-1.8) 09/08/17 12:40 Lymph # 1.5 K/mm3 (1.2-5.4) 09/08/17 12:40 [place] # 0.8 K/mm3 (0.0-0.8) 09/08/17 12:40 Eos # 0.1 K/mm3 (0.0-0.4) 09/08/17 12:40 Baso # 0.0 K/mm3 (0.0-0.1) 09/08/17 12:40 Add Manual Diff Complete 09/09/17 06:10 Total Counted 100 09/09/17 06:10 Seg Neutrophils % 78.5 % (40.0-70.0) H 09/08/17 12:40 Seg Neuts % (Manual) 86.0 % (40.0-70.0) H 09/09/17 06:10 Band Neutrophils % 0 % 09/09/17 06:10 Lymphocytes % (Manual) 6.0 % (13.4-35.0) L 09/09/17 06:10 Reactive Lymphs % (Man) 0 % 09/09/17 06:10 Monocytes % (Manual) 8.0 % (0.0-7.3) H 09/09/17 06:10 Eosinophils % (Manual) 0 % (0.0-4.3) 09/09/17 06:10 Basophils % (Manual) 0 % (0.0-1.8) 09/09/17 06:10 Metamyelocytes % 0 % 09/09/17 06:10 Myelocytes % 0 % 09/09/17 06:10 Promyelocytes % 0 % 09/09/17 06:10 Blast Cells % 0 % 09/09/17 06:10 Nucleated RBC % Not Reportable 09/09/17 06:10 Seg Neutrophils # 8.8 K/mm3 (1.8-7.7) H 09/08/17 12:40 Seg Neutrophils # Man 9.1 K/mm3 (1.8-7.7) H 09/09/17 06:10 Band Neutrophils # 0.0 K/mm3 09/09/17 06:10 Lymphocytes # (Manual) 0.6 K/mm3 (1.2-5.4) L 09/09/17 06:10 Abs React Lymphs (Man) 0.0 K/mm3 09/09/17 06:10 Monocytes # (Manual) 0.8 K/mm3 (0.0-0.8) 09/09/17 06:10 Eosinophils # (Manual) 0.0 K/mm3 (0.0-0.4) 09/09/17 06:10 Basophils # (Manual) 0.0 K/mm3 (0.0-0.1) 09/09/17 06:10 Metamyelocytes # 0.0 K/mm3 09/09/17 06:10 Myelocytes # 0.0 K/mm3 09/09/17 06:10 Promyelocytes # 0.0 K/mm3 09/09/17 06:10 Blast Cells # 0.0 K/mm3 09/09/17 06:10 WBC Morphology Not Reportable 09/09/17 06:10 Hypersegmented Neuts Not Reportable 09/09/17 06:10 Hyposegmented Neuts Not Reportable 09/09/17 06:10 Hypogranular Neuts Not Reportable 09/09/17 06:10 Smudge Cells Not Reportable 09/09/17 06:10 Toxic Granulation Not Reportable 09/09/17 06:10 Toxic Vacuolation Not Reportable 09/09/17 06:10 Dohle Bodies Not Reportable 09/09/17 06:10 Pelger-Huet Anomaly Not Reportable 09/09/17 06:10 Robbie Rods Not Reportable 09/09/17 06:10 Platelet Estimate Appears normal 09/09/17 06:10 Clumped Platelets Not Reportable 09/09/17 06:10 Plt Clumps, EDTA Not Reportable 09/09/17 06:10 Large Platelets Not Reportable 09/09/17 06:10 Giant Platelets Not Reportable 09/09/17 06:10 Platelet Satelliting Not Reportable 09/09/17 06:10 Plt Morphology Comment Not Reportable 09/09/17 06:10 RBC Morphology Not Reportable 09/09/17 06:10 Dimorphic RBCs Not Reportable 09/09/17 06:10 Polychromasia Not Reportable 09/09/17 06:10 Hypochromasia 1+ 09/09/17 06:10 Poikilocytosis Not Reportable 09/09/17 06:10 Anisocytosis 2+ 09/09/17 06:10 Microcytosis 1+ 09/09/17 06:10 Macrocytosis 1+ 09/09/17 06:10 Spherocytes Not Reportable 09/09/17 06:10 Pappenheimer Bodies Not Reportable 09/09/17 06:10 Sickle Cells Not Reportable 09/09/17 06:10 Target Cells Not Reportable 09/09/17 06:10 Tear Drop Cells Not Reportable 09/09/17 06:10 Ovalocytes Not Reportable 09/09/17 06:10 Helmet Cells Not Reportable 09/09/17 06:10 [place] Bodies Not Reportable 09/09/17 06:10 [place] Rings Not Reportable 09/09/17 06:10 Nikos Cells Not Reportable 09/09/17 06:10 Bite Cells Not Reportable 09/09/17 06:10 Crenated Cell Not Reportable 09/09/17 06:10 Elliptocytes Not Reportable 09/09/17 06:10 Acanthocytes (Spur) Not Reportable 09/09/17 06:10 Rouleaux Not Reportable 09/09/17 06:10 Hemoglobin C Crystals Not Reportable 09/09/17 06:10 Schistocytes Not Reportable 09/09/17 06:10 Malaria parasites Not Reportable 09/09/17 06:10 ESR 1 mm/Hr (0-20) 09/09/17 07:10 Phillip Bodies Not Reportable 09/09/17 06:10 Hem Pathologist Commnt No 09/09/17 06:10 D-Dimer 4602.55 ng/mlDDU (0-234) H 09/08/17 12:11 Sodium 133 mmol/L (137-145) L 09/09/17 07:10 Potassium 5.3 mmol/L (3.6-5.0) H 09/09/17 07:10 Chloride 97.1 mmol/L (98-107) L 09/09/17 07:10 Carbon Dioxide 23 mmol/L (22-30) 09/09/17 07:10 Anion Gap 18 mmol/L 09/09/17 07:10 BUN 11 mg/dL (7-17) 09/09/17 07:10 Creatinine 0.6 mg/dL (0.7-1.2) L 09/09/17 07:10 Estimated GFR > 60 ml/min 09/09/17 07:10 BUN/Creatinine Ratio 18 % 09/09/17 07:10 Glucose 96 mg/dL (65-100) 09/09/17 07:10 Hemoglobin A1c < 4.2 % (4-6) 09/08/17 17:08 Calcium 8.4 mg/dL (8.4-10.2) 09/09/17 07:10 Total Bilirubin 0.50 mg/dL (0.1-1.2) 09/09/17 07:10 AST 21 units/L (5-40) 09/09/17 07:10 ALT 11 units/L (7-56) 09/09/17 07:10 Alkaline Phosphatase 160 units/L (35-129) H 09/09/17 07:10 CK-MB (CK-2) 1.5 ng/mL (0.0-4.0) 09/08/17 12:11 Troponin T < 0.010 ng/mL (0.00-0.029) 09/09/17 09:24 NT-Pro-B Natriuret Pep 1310 pg/mL (0-900) H 09/08/17 12:11 Total Protein 7.3 g/dL (6.3-8.2) 09/09/17 07:10 Albumin 2.7 g/dL (3.9-5) L 09/09/17 07:10 Albumin/Globulin Ratio 0.6 % 09/09/17 07:10 Rheumatoid Factor 623 IU/ml (0-13) H 09/09/17 07:10 Blood Type A POSITIVE 09/08/17 12:40 Antibody Screen Negative 09/08/17 12:40 Crossmatch See Detail 09/08/17 12:40
[2017-09-09] MEDS: DUONEB *Not for PRN Use IH SCH ×2 (13:46→22:23)
--- NOTE | 2017-09-09 15:40 | Cat Scan Report ---
FINAL REPORT EXAM: CT ABDOMEN PELVIS WO CON HISTORY: anemia, cachexia TECHNIQUE: CT examination of the ABDOMEN without IV contrast CT examination of the PELVIS without IV contrast PRIORS: Chest CT 09/09/2017 FINDINGS: Patient arm in the diagnostic [id number] degrades image quality and limits the examination. Nonspecific hepatomegaly without focal lesion. Sagittal liver dimension is 20.1 cm. Normal noncontrast appearance of the gallbladder, adrenals, pancreas, and spleen with small calcified granuloma. Normal caliber abdominal aorta with moderate calcified atherosclerotic plaque. Normal caliber IVC. Atrophic or hypoplastic right kidney. 1 mm nonobstructing right renal calculus. 1 mm cortical calcification in the right kidney may be scarring. Nonspecific slight distention of the right renal pelvis and right ureter diffusely. No calculus in the visible right ureter. Asymmetrically larger left kidney. No left renal calculus. Slight left hydronephrosis and slight left ureterectasis. No CT is available left ureteral calculus. Small fat containing right inguinal hernia. No retroperitoneal adenopathy. No definite mesenteric mass. Large hiatal hernia. Otherwise normal appearing stomach and duodenum. No small bowel distention in the abdomen and pelvis. No pelvic free fluid. Normal-appearing uterus, adnexae, and rectum. Grossly distended urinary bladder, nonspecific. Nonspecific slight mural thickening in distal descending colon. Nonspecific mural thickening throughout the sigmoid colon. There is slight sigmoid diverticulosis. Findings may reflect mild diverticulitis. No adjacent fat stranding, however. Prominent stool from cecum to rectum may reflect constipation. There is also prominence of gas and caliber in the ascending and transverse colon. No gross ascites or free air. Normal-appearing terminal ileum and retrocecal appendix. Degenerative change in the regional skeleton. No vertebral compression fracture. IMPRESSION: Nonspecific bilateral hydronephrosis may be related to markedly distended urinary bladder Slight sigmoid diverticulosis diffusely. Mural thickening in the distal descending colon and throughout the sigmoid colon may reflect mild diverticulitis. There is, however, no adjacent inflammatory change Prominent stool, caliber, and gas from cecum to rectum may reflect constipation. There may be a component of paralytic ileus Hepatomegaly without focal liver lesion Atrophic or hypoplastic right kidney with suggestion of left renal compensatory hypertrophy. 1 mm nonobstructing right renal calculus Small fat containing right inguinal hernia and large hiatal hernia
--- NOTE | 2017-09-09 15:51 | Cat Scan Report ---
FINAL REPORT EXAM: CT CHEST WO CON HISTORY: anemia, cachexia TECHNIQUE: CT examination of the chest without IV contrast PRIORS: AP CT 09/09/2017 FINDINGS: Patient arm in the diagnostic [id number] degrades image quality and limits the examination. Normal cardiac size. Normal caliber thoracic aorta with moderate calcified atherosclerotic plaque. Large hiatal hernia. Otherwise normal appearing stomach and esophagus. No hilar mass or mediastinal adenopathy. Nonspecific small hypodense nodule in right thyroid lobe less than 1 cm. Degenerative change in the regional skeleton. No evidence of acute fracture or focal osseous lesion. No pneumothorax or pleural effusion. Slight bilateral pulmonary emphysema with scattered interstitial scarring. Nonspecific 8 mm pulmonary nodule in the anteromedial left lower lobe just posterior to the cardiac margin, series 3, image 81. 7 mm left lower lobe pulmonary nodule slightly posterior and superior to the other with slightly irregular margins, series 3, image 78. IMPRESSION: Nonspecific 7 and 8 mm left lower lobe pulmonary nodules with slightly irregular margins. Recommend followup surveillance chest CT in 3 months to ensure stability. Large hiatal hernia Bilateral pulmonary emphysema with scattered interstitial scarring
[2017-09-09 17:56] LABS: Hematocrit 32.8 % (30.3-42.9); Hemoglobin 10.4 gm/dl (10.1-14.3)
[2017-09-09] MEDS: SODIUM CHLORIDE FLUSH SYRINGE 10 ML IV SCH ×2 (22:27→22:28)
[2017-09-09 23:03] LABS: Hematocrit 31.6 % (30.3-42.9); Hemoglobin 9.8 gm/dl (10.1-14.3)
[2017-09-10] MEDS: DUONEB *Not for PRN Use IH SCH ×2 (02:24→13:35)
[2017-09-10] MEDS: PERCOCET 5/325 PO PRN ×3 (05:19→15:53)
[2017-09-10 06:20] LABS: Hematocrit 31.3 % (30.3-42.9); Hemoglobin 9.9 gm/dl (10.1-14.3)
[2017-09-10 06:29] LABS: BUN/Creatinine Ratio 23; Blood Urea Nitrogen 14 mg/dL (7-17); Calcium 8.8 mg/dL (8.4-10.2); Hemolysis Index 2
[2017-09-10] MEDS ORDERED: MIRALAX 3350 PO PRN (08:53)
[2017-09-10] MEDS: PROTONIX IV SCH (10:30)
[2017-09-10] MEDS: SODIUM CHLORIDE FLUSH SYRINGE 10 ML IV SCH ×2 (10:31→10:32)
[2017-09-10 12:12] VITALS: BP 115/83
--- NOTE | 2017-09-10 14:15 | Discharge Summary ---
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 Hospitalization Reason for admission: Severe anemia, cachexia, lung nodule Condition: Stable Disposition: DC-01 TO HOME OR SELFCARE Time spent for discharge: 31 minutes - Discharge Diagnoses (1) Anemia Status: Acute (2) Chest pain Status: Acute Qualifiers: Chest pain type: unspecified Qualified Code(s): R07.9 - Chest pain, unspecified (3) Shortness of breath Status: Acute (4) Malnutrition Status: Chronic Qualifiers: Protein-calorie malnutrition severity: moderate (5) Rheumatoid arthritis Status: Chronic Qualifiers: Rheumatoid arthritis location: hand Laterality: bilateral (6) Abdominal pain Status: Acute Core Measure Documentation - Palliative Care Palliative Care/ Comfort Measures: Not Applicable - Core Measures Any of the following diagnoses?: none Exam - Physical Exam Narrative exam: Not in cardiopulmonary distress. The patient appeared cachectic. Vital signs as documented. Head exam is unremarkable. No scleral icterus . Neck is without jugular venous distension, thyromegaly, or carotid bruits. Lungs are clear to auscultation. Cardiac exam reveals regular rate and Rhythm. Abdominal exam reveals normal bowel sounds, no masses, no organomegaly and no aortic enlargement. Extremities are nonedematous and both femoral and pedal pulses are normal. 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 No focal weakness. - Constitutional Vitals: Temp Pulse Resp BP Pulse Ox 97.8 F 88 18 115/83 93 09/10/17 11:45 09/10/17 13:52 09/10/17 13:52 09/10/17 11:45 09/10/17 11:45 Plan Activity: no restrictions Weight Bearing Status: Full Weight Bearing Diet: regular Special Instructions: smoking cessation Additional Instructions: follow @[facility] in 1 week Follow up with: JEAN SHEPHERD MD [Primary Care Provider] - 7 Days RAÚL ESQUIVEL MD [Staff Physician] - 14 Days Prescriptions: Acetaminophen [Tylenol Arthritis] 650 mg PO Q6H PRN #30 tablet.er PRN Reason: Pain Pantoprazole [Protonix TAB] 40 mg PO QDAY #30 tablet Polyethylene Glycol 3350 [Miralax 3350] 17 gm PO BID PRN #30 powd.pack PRN Reason: Constipation Prednisone 5 mg PO BID #30 tablet
== END 2017-09-10 16:01 | disposition home or self-care (01) | DRG 377 ==
LOC: ED 11:03 → 4A 16:53
PROVIDERS: ADMIT Internal Medicine; ATTEND Internal Medicine
PROC: 30233N1 Transfusion of Nonautologous Red Blood Cells into Peripheral Vein, Percutaneous Approach (ICD-10-PCS; 2017-09-08)
PROC: 3E0234Z Introduction of Serum, Toxoid and Vaccine into Muscle, Percutaneous Approach (ICD-10-PCS; principal; 2017-09-09)
DX: K92.2 Gastrointestinal hemorrhage, unspecified (principal); J96.90 Respiratory failure, unspecified, unspecified whether with hypoxia or hypercapnia; R07.89 Other chest pain; D62 Acute posthemorrhagic anemia; M06.9 Rheumatoid arthritis, unspecified; Z23 Encounter for immunization; J44.9 Chronic obstructive pulmonary disease, unspecified; E44.0 Moderate protein-calorie malnutrition; Z68.1 Body mass index [BMI] 19.9 or less, adult; R13.10 Dysphagia, unspecified; D50.9 Iron deficiency anemia, unspecified; K44.9 Diaphragmatic hernia without obstruction or gangrene; T39.395A Adverse effect of other nonsteroidal anti-inflammatory drugs [NSAID], initial encounter; Y92.89 Other specified places as the place of occurrence of the external cause; R64 Cachexia
CPT/HCPCS: 36415; 71045; 71250; 74176; 80048; 80053; 82553; 83036; 83880; 84484; 85007; 85014; 85018; 85025; 85027; 85379; 85652; 86038; 86200; 86225; 86618; 86850; 86900; 86901; 86920; 90686; 93005; 93010; 94640; 96374; 99406; C9113; J2270; J7030; P9016

== ENCOUNTER 2019-05-14 00:53 | Emergency (ER) | payer MEDICAID ==
[2019-05-14] MEDS ORDERED: MORPHINE 2 MG/1 ML INJ IV ONE (01:32)
--- NOTE | 2019-05-14 01:43 | XRay Report ---
CHEST 1 VIEW INDICATION: chest pain. COMPARISON: 09/08/2017. FINDINGS: Support devices: None. Heart: Within normal limits. Lungs/Pleura: No acute air space or interstitial disease. Additional findings: Suspected hiatal hernia. IMPRESSION: No acute infiltrate. Signer Name: Quinten Weinberg MD Signed: 05/14/2019 1:39 AM Workstation Name: [id number]
[2019-05-14 01:44] LABS: Basophils # (Auto) 0.1 K/mm3 (0.0-0.1); Basophils % (Auto) 0.7 % (0.0-1.8); Eosinophils # (Auto) 0.1 K/mm3 (0.0-0.4); Eosinophils % (Auto) 1.1 % (0.0-4.3); Hematocrit 22.6 % (30.3-42.9); Hemoglobin 6.8 gm/dl (10.1-14.3); Lymphocytes # (Auto) 2.3 K/mm3 (1.2-5.4); Lymphocytes % (Auto) 30.3 % (13.4-35.0); Mean Corpuscular HGB Conc 30 % (30-34); Mean Corpuscular Volume 76 fl (79-97); Monocytes # (Auto) 0.4 K/mm3 (0.0-0.8); Monocytes % (Auto) 5.9 % (0.0-7.3); Platelet Count 401 K/mm3 (140-440); Red Blood Count 2.99 M/mm3 (3.65-5.03); Red Cell Distribution Width 18.3 % (13.2-15.2)
--- NOTE | 2019-05-14 01:52 | Emergency Department Report ---
ED Chest Pain HPI - General Chief Complaint: Chest Pain Stated Complaint: CHEST PAIN Time Seen by Provider: 05/14/19 01:15 Source: EMS Mode of arrival: Stretcher Limitations: No Limitations - History of Present Illness Initial Comments: 58-year-old female with history of anemia, rheumatoid arthritis, COPD, hypertension, presents to ED with nausea and chest pain since yesterday. Patient reports dry cough over the last few days. Patient states chest pain is worse with cough. States chest pain is substernal, feels sharp in nature, and is nonradiating. Patient denies any shortness of breath, states she administered her breathing treatment at home, however did not improve her symptoms. She denies any leg pain or swelling, aside from pain due to her rheumatoid arthritis. She reports tobacco use. MD Complaint: chest pain -: days(s) (1) Onset: during rest Pain Location: substernal Pain Radiation: none Severity: moderate Severity scale (0 -10): 6 Quality: sharp Consistency: constant Improves With: nothing Worsens With: palpation, other (cough) re: nausea. denies: vomting, diaphoresis, dyspnea Other Symptoms: denies: fever, leg swelling Treatments Prior to Arrival: other (albuterol) - Related Data Home Medications Medication Instructions Recorded Confirmed Last Taken One Daily Womens 50 Plus Tab 1 each PO QDAY 09/08/17 09/08/17 09/07/17 Previous Rx's Medication Instructions Recorded Last Taken Type Acetaminophen [Tylenol Arthritis] 650 mg PO Q6H PRN #30 tablet.er 09/10/17 Unknown Rx Pantoprazole [Protonix TAB] 40 mg PO QDAY #30 tablet 09/10/17 Unknown Rx Polyethylene Glycol 3350 [Miralax 17 gm PO BID PRN #30 powd.pack 09/10/17 Unknown Rx 3350] predniSONE [Prednisone] 5 mg PO BID #30 tablet 09/10/17 Unknown Rx Benzonatate [Tessalon Perles] 100 mg PO Q8HR PRN #20 capsule 05/14/19 Unknown Rx Ferrous Sulfate [Ferrous Sulfate 324 mg PO TID #90 tablet. 05/14/19 Unknown Rx 324 MG] traMADoL [Ultram] 50 mg PO Q6HR PRN #7 tablet 05/14/19 Unknown Rx Allergies Allergy/AdvReac Type Severity Reaction Status Date / Time No Known Allergies Allergy Verified 02/19/14 19:44 Heart Score - HEART Score History: Slightly suspicious EKG: Normal Age: 45-65 Risk factors: 1-2 risk factors Troponin: < normal limit HEART Score: 2 ED Review of Systems ROS: Stated complaint: CHEST PAIN Other details as noted in HPI Comment: All other systems reviewed and negative Constitutional: denies: chills, fever Respiratory: cough. denies: shortness of breath Cardiovascular: chest pain Gastrointestinal: nausea. denies: vomiting, hematemesis, melena, hematochezia ED Past Medical Hx - Past Medical History Hx Hypertension: Yes Hx Congestive Heart Failure: No Hx Diabetes: No Hx Arthritis: Yes Hx Asthma: Yes Hx COPD: Yes Hx HIV: No - Surgical History Additional Surgical History: right leg surgery x2, right knee replacement, left wrist surgery x2, tubal - Social History Smoking Status: Current Every Day Smoker Substance Use Type: None - Medications Home Medications: Home Medications Medication Instructions Recorded Confirmed Last Taken Type One Daily Womens 50 Plus Tab 1 each PO QDAY 09/08/17 09/08/17 09/07/17 History Acetaminophen [Tylenol Arthritis] 650 mg PO Q6H PRN #30 tablet.er 09/10/17 Unknown Rx Pantoprazole [Protonix TAB] 40 mg PO QDAY #30 tablet 09/10/17 Unknown Rx Polyethylene Glycol 3350 [Miralax 17 gm PO BID PRN #30 powd.pack 09/10/17 Unknown Rx 3350] predniSONE [Prednisone] 5 mg PO BID #30 tablet 09/10/17 Unknown Rx Benzonatate [Tessalon Perles] 100 mg PO Q8HR PRN #20 capsule 05/14/19 Unknown Rx Ferrous Sulfate [Ferrous Sulfate 324 mg PO TID #90 tablet.dr 05/14/19 Unknown Rx 324 MG] traMADoL [Ultram] 50 mg PO Q6HR PRN #7 tablet 05/14/19 Unknown Rx ED Physical Exam - General Limitations: No Limitations General appearance: alert, in no apparent distress - Head Head exam: Present: atraumatic, normocephalic - Eye Eye exam: Present: normal appearance - ENT ENT exam: Present: mucous membranes moist - Neck Neck exam: Present: normal inspection - Respiratory Respiratory exam: Present: normal lung sounds bilaterally, chest wall tenderness. Absent: respiratory distress - Cardiovascular Cardiovascular Exam: Present: regular rate, normal rhythm - GI/Abdominal GI/Abdominal exam: Present: soft. Absent: distended, tenderness - Extremities Exam Extremities exam: Present: normal inspection. Absent: pedal edema, calf tenderness - Neurological Exam Neurological exam: Present: alert, oriented X3 - Psychiatric Psychiatric exam: Present: normal affect, normal mood - Skin Skin exam: Present: warm, dry, intact, normal color ED Course Vital Signs 05/14/19 05/14/19 05/14/19 01:07 01:15 04:35 Temperature 98.1 F Pulse Rate 78 77 Respiratory 16 16 12 Rate Blood Pressure 134/97 110/62 [Left] O2 Sat by Pulse 99 100 97 Oximetry PAPI score - Papi Score Age > 65: (0) No Aspirin use within the Past 7 Days: (0) No 3 or more CAD Risk Factors: (1) Yes 2 or more Angina events in past 24 hrs: (1) Yes Known CAD with more than 50% Stenosis: (0) No Elevated Cardiac Markers: (0) No ST Deviation Greater than 0.5mm: (0) No PAPI Score: 2 ED Medical Decision Making - Lab Data Result diagrams: 05/14/19 01:25 05/14/19 01:25 - EKG Data -: EKG Interpreted by Ri EKG shows normal: sinus rhythm, axis, intervals, QRS complexes, ST-T waves Rate: normal - EKG Data Interpretation: no acute changes - Radiology Data Radiology results: report reviewed, image reviewed - Medical Decision Making 58-year-old female with history of COPD, anemia, presents to ED with nausea and chest pain x 1 day. EKG shows no acute ST changes. Troponin negative 2. CTA chest was obtained and is negative for PE or any other acute abnormalities. Patient reports chest pain is worse with coughing. Patient has reproducible chest wall tenderness on exam. Symptoms have improved with pain medication. Patient has history of anemia, current hemoglobin is 6.8. I do not think that her chest pain is due to symptomatic anemia, as she is not having any exertional pain. Also denies shortness of breath at this time. Patient denies any blood in her stool. Vital signs are stable. Patient has had hemoglobin as low as 3 in the past and required multiple unit blood transfusion at that time. I do not think patient requires blood transfusion at this time. MCV is slightly decreased, possible iron deficiency anemia versus anemia chronic disease. Will discharge with prescription for iron pills. Patient feeling better at this time. Outpatient follow-up advised. Return precautions given. Information faxed to [facility] for follow-up. Patient informed of continued presence of pulmonary nodule and need for follow-up. - Differential Diagnosis ACS, pneumonia, costochondritis, PE Critical care attestation.: If time is entered above; I have spent that time in minutes in the direct care of this critically ill patient, excluding procedure time. ED Disposition Clinical Impression: Anemia, Chest pain Disposition: TO HOME OR SELFCARE Is pt being admited?: No Condition: Stable Instructions: Chest Pain (ED), Anemia (ED) Prescriptions: Ferrous Sulfate [Ferrous Sulfate 324 MG] 324 mg PO TID #90 tablet. Benzonatate [Tessalsasha Perles] 100 mg PO Q8HR PRN #20 capsule PRN Reason: Cough traMADoL [Ultram] 50 mg PO Q6HR PRN #7 tablet PRN Reason: Pain Referrals: JEAN SHEPHERD MD [Primary Care Provider] - 3-5 Days [facility] [Provider Group] - 3-5 Days CHAYITO NASH MD [Staff Physician] - 3-5 Days
[2019-05-14 01:53] LABS: INR 1.09 (0.87-1.13); Partial Thromboplastin Time 30.9 Sec. (24.2-36.6)
[2019-05-14 02:03] LABS: BUN/Creatinine Ratio 22; Blood Urea Nitrogen 13 mg/dL (7-17); Calcium 8.6 mg/dL (8.4-10.2); Hemolysis Index 0
[2019-05-14 02:04] LABS: Alanine Aminotransferase 7 units/L (7-56); Albumin 2.8 g/dL (3.9-5)
[2019-05-14 02:16] LABS: Bilirubin,Direct < 0.2 mg/dL (0-0.2)
--- NOTE | 2019-05-14 03:30 | Cat Scan Report ---
CT angio chest INDICATION / CLINICAL INFORMATION: chest pain. TECHNIQUE: Axial CT images were obtained after injection of Omnipaque 350, 100 cc IV contrast using CTA protocol . 3 plane MIP / 3D reconstructions were produced. All CT scans at this location are performed using C T dose reduction for ALARA by means of automated exposure control. COMPARISON: CT chest 09/09/2017. FINDINGS: Underlying emphysema is moderate. Negative for acute infiltrate. Irregular density at the left upper lobe measuring 9 mm (series 2, image 29) is unchanged in size and appearance. Mild basilar scarring r emains. Evaluation the mediastinum demonstrates no mass or adenopathy. Prominent nodes at the left axilla are stable. Imaging of the upper abdomen again demonstrates atrophy of the right kidney. A moderate/larg e hiatal hernia is stable. Negative for aneurysm, dissection or pulmonary embolus. IMPRESSION: 1. No pulmonary unless or pneumonia. 2. Small irregular density left upper zone is stable. 3. Stable prominent nodes left axilla. 4. Stable right renal atrophy. Signer Name: Quinten Weinberg MD Signed: 05/14/2019 3:26 AM Workstation Name: [id number]
[2019-05-14 04:36] VITALS: BP 110/62
== END 2019-05-14 05:11 | disposition home or self-care (01) ==
LOC: ED 00:53
DX: R07.2 Precordial pain (principal); D64.9 Anemia, unspecified; R11.0 Nausea; I10 Essential (primary) hypertension; M19.90 Unspecified osteoarthritis, unspecified site; J44.9 Chronic obstructive pulmonary disease, unspecified; F17.200 Nicotine dependence, unspecified, uncomplicated; Z98.890 Other specified postprocedural states; Z79.899 Other long term (current) drug therapy
CPT/HCPCS: 36415; 71045; 71275; 80048; 80076; 83690; 84484; 85025; 85379; 85610; 85730; 93005; 93010; 96374; 99285; J2270; Q9967

== ENCOUNTER 2019-12-09 15:50 | Inpatient (IN) | payer MEDICAID ==
[2019-12-09] MEDS ORDERED: SODIUM CHLORIDE 0.9% 1000 ML IV SOLN IV ONE (16:19)
--- NOTE | 2019-12-09 16:21 | Emergency Department Report ---
- General Chief complaint: Dizziness Stated complaint: WEAKNESS/HYPOTENSION PUI?: No Time Seen by Provider: 12/09/19 16:05 Source: patient Mode of arrival: Stretcher Limitations: No Limitations - History of Present Illness Initial comments: Patient is a 59-year-old female that presents emergency room with complaints of weakness, lightheadedness, fall, right hip and pelvic pain, abdominal pain. Patient was brought in by EMS and was found to be hypotensive. Patient is currently receiving saline hung by EMS. Patient states her abdominal, pelvic and right hip pain are a 10 out of 10. Patient states due to the pain the patient has not been able to walk. Patient states that she fell earlier this morning while trying to go to the restroom. Patient denies loss of consciousness. Patient denies hitting her head. Patient states that she is weak due to the pain and she was unable to walk back to her bed. Patient states the pain is worsening. Patient states the weakness is worsening. Patient states she called the ambulance and she is unable to get out of bed. Patient states that her hip pain and abdominal pain are better with rest and worse with movement. Patient states her weakness is generalized. Patient denies recent travel. Patient denies recent international travel. Patient denies exposure to the novel coronavirus. Patient denies sick contacts. Patient denies fever and chills. Patient denies cough. Patient denies diarrhe a. Patient denies coming in contact with anybody with symptoms of the novel coronavirus. MD Complaint: generalized weakness, difficulty walking -: Sudden Location: generalized Severity: severe Consistency: constant Improves with: rest Worsens with: movement Context: trauma/injury Associated Symptoms: denies: chest pain, confusion, dark stools, diaphoresis, dysuria, easy bruising, fever/chills, headaches, loss of appetite, nausea/vomiting, myalgias, rash, shortness of breath, syncope - Related Data Home Medications Medication Instructions Recorded Confirmed Last Taken One Daily Womens 50 Plus Tab 1 each PO QDAY 09/08/17 09/08/17 09/07/17 Previous Rx's Medication Instructions Recorded Last Taken Type Acetaminophen [Tylenol Arthritis] 650 mg PO Q6H PRN #30 tablet.er 09/10/17 Unknown Rx Pantoprazole [Protonix TAB] 40 mg PO QDAY #30 tablet 09/10/17 Unknown Rx polyethylene glycoL 3350 [Miralax 17 gm PO BID PRN #30 powd.pack 09/10/17 Unknown Rx 3350] predniSONE [Prednisone] 5 mg PO BID #30 tablet 09/10/17 Unknown Rx Benzonatate [Tessalon Perles] 100 mg PO Q8HR PRN #20 capsule 05/14/19 Unknown Rx Ferrous Sulfate [Ferrous Sulfate 324 mg PO TID #90 tablet. 05/14/19 Unknown Rx 324 MG] traMADoL [Ultram] 50 mg PO Q6HR PRN #7 tablet 05/14/19 Unknown Rx Allergies Allergy/AdvReac Type Severity Reaction Status Date / Time No Known Allergies Allergy Verified 02/19/14 19:44 ED Review of Systems ROS: Stated complaint: WEAKNESS/HYPOTENSION Other details as noted in HPI Constitutional: weakness. denies: chills, fever Eyes: denies: eye pain, eye discharge, vision change ENT: denies: ear pain, throat pain Respiratory: denies: cough, shortness of breath, wheezing Cardiovascular: denies: chest pain, palpitations Endocrine: no symptoms reported Gastrointestinal: as per HPI, abdominal pain. denies: nausea, diarrhea Genitourinary: denies: urgency, dysuria, discharge Musculoskeletal: denies: back pain, joint swelling, arthralgia Skin: denies: rash, lesions Neurological: as per HPI, weakness. denies: headache, paresthesias Psychiatric: denies: anxiety, depression Hematological/Lymphatic: denies: easy bleeding, easy bruising ED Past Medical Hx - Past Medical History Previous Medical History?: Yes Hx Hypertension: Yes Hx Congestive Heart Failure: No Hx Diabetes: No Hx Arthritis: Yes Hx Asthma: Yes Hx COPD: Yes Hx HIV: No - Surgical History Past Surgical History?: Yes Additional Surgical History: right leg surgery x2, right knee replacement, left wrist surgery x2, tubal - Family History Family history: no significant - Social History Smoking Status: Never Smoker Substance Use Type: None - Medications Home Medications: Home Medications Medication Instructions Recorded Confirmed Last Taken Type One Daily Womens 50 Plus Tab 1 each PO QDAY 09/08/17 09/08/17 09/07/17 History Acetaminophen [Tylenol Arthritis] 650 mg PO Q6H PRN #30 tablet.er 09/10/17 Unknown Rx Pantoprazole [Protonix TAB] 40 mg PO QDAY #30 tablet 09/10/17 Unknown Rx polyethylene glycoL 3350 [Miralax 17 gm PO BID PRN #30 powd.pack 09/10/17 Unknown Rx 3350] predniSONE [Prednisone] 5 mg PO BID #30 tablet 09/10/17 Unknown Rx Benzonatate [Tessalon Perles] 100 mg PO Q8HR PRN #20 capsule 05/14/19 Unknown Rx Ferrous Sulfate [Ferrous Sulfate 324 mg PO TID #90 tablet. 05/14/19 Unknown Rx 324 MG] traMADoL [Ultram] 50 mg PO Q6HR PRN #7 tablet 05/14/19 Unknown Rx ED Physical Exam - General Limitations: No Limitations General appearance: alert, in no apparent distress - Head Head exam: Present: atraumatic, normocephalic - Eye Eye exam: Present: normal appearance, PERRL, other (Scleral pallor) Pupils: Present: normal accommodation - ENT ENT exam: Present: mucous membranes moist - Neck Neck exam: Present: normal inspection - Respiratory Respiratory exam: Present: normal lung sounds bilaterally. Absent: respiratory distress - Cardiovascular Cardiovascular Exam: Present: regular rate, normal rhythm. Absent: systolic murmur, diastolic murmur, rubs, gallop - GI/Abdominal GI/Abdominal exam: Present: soft, tenderness (Right lower quadrant tenderness), normal bowel sounds - Rectal Rectal exam: Present: normal inspection, normal rectal tone, heme (-) stool - Extremities Exam Extremities exam: Present: normal inspection, tenderness (Right hip) - Back Exam Back exam: Present: normal inspection - Neurological Exam Neurological exam: Present: alert, oriented X3 - Psychiatric Psychiatric exam: Present: normal affect, normal mood - Skin Skin exam: Present: warm, dry, intact, pallor. Absent: rash - Assessment Assessment Interval: Baseline - Level of Consciousness 1a. Level of Consciousness: alert/keenly responsive - LOC Questions 1b. LOC Questions: answers both correctly - LOC Command 1c. LOC Commands: performs tasks correctly - Best Gaze 2. Best Gaze: normal - Visual 3. Visual: no visual loss - Facial Palsy 4. Facial Palsy: normal symmetrical movement - Motor Arm 5a. Motor Arm Left: no drift 5b. Motor Arm Right: no drift - Motor Leg 6a. Motor Leg Left: some gravity effort 6b. Motor Leg Right: some gravity effort - Limb Ataxia 7. Limb Ataxia: absent - Sensory 8. Sensory: normal - Best Language 9. Best Language: no aphasia - Dysarthria 10. Dysarthria: normal - Extinction and Inattention 11. Extinction/Inattention: no abnormality - Scoring Total Score: 4 Stroke Severity: Minor Stroke ED Course Vital Signs 12/09/19 12/09/19 12/09/19 16:01 16:38 17:45 Temperature 98.2 F Pulse Rate 97 H 96 H Respiratory 16 16 Rate Blood Pressure 78/45 Blood Pressure 85/40 [Left] O2 Sat by Pulse 99 100 99 Oximetry 12/09/19 12/09/19 12/09/19 18:00 18:14 18:15 Temperature 98 F 98 F Pulse Rate 94 H 92 H 91 H Respiratory 22 16 25 H Rate Blood Pressure 83/45 90/45 90/45 Blood Pressure [Left] O2 Sat by Pulse 100 99 Oximetry 12/09/19 12/09/19 12/09/19 18:30 18:38 18:45 Temperature 98.4 F Pulse Rate 91 H 83 87 Respiratory 21 16 24 Rate Blood Pressure 88/50 86/45 90/47 Blood Pressure [Left] O2 Sat by Pulse 98 99 100 Oximetry 12/09/19 12/09/19 12/09/19 19:00 19:15 19:45 Temperature Pulse Rate 83 85 Respiratory 22 20 Rate Blood Pressure 88/44 96/58 96/58 Blood Pressure [Left] O2 Sat by Pulse 100 99 100 Oximetry 12/09/19 12/09/19 12/09/19 20:00 20:11 20:21 Temperature Pulse Rate 82 81 86 Respiratory 20 17 25 H Rate Blood Pressure 99/48 99/48 Blood Pressure [Left] O2 Sat by Pulse 99 100 99 Oximetry 12/09/19 12/09/19 12/09/19 20:30 20:41 20:43 Temperature 98.3 F Pulse Rate 80 85 Respiratory 19 16 Rate Blood Pressure 111/63 111/63 Blood Pressure [Left] O2 Sat by Pulse 99 99 Oximetry 12/09/19 12/09/19 12/09/19 20:45 20:46 20:58 Temperature 98.3 F 98.3 F Pulse Rate 84 84 Respiratory 20 22 Rate Blood Pressure 109/63 115/63 Blood Pressure 89/42 [Left] O2 Sat by Pulse 100 100 Oximetry 12/09/19 12/09/19 12/09/19 21:00 21:30 22:00 Temperature Pulse Rate 83 86 77 Respiratory 22 15 16 Rate Blood Pressure 109/62 107/59 107/49 Blood Pressure [Left] O2 Sat by Pulse 100 96 100 Oximetry 12/09/19 12/09/19 12/09/19 22:15 22:30 22:45 Temperature Pulse Rate 78 76 78 Respiratory 16 13 14 Rate Blood Pressure 110/55 120/63 119/62 Blood Pressure [Left] O2 Sat by Pulse 91 96 Oximetry 12/09/19 12/09/19 12/09/19 23:01 23:15 23:30 Temperature Pulse Rate 77 79 89 Respiratory 14 17 17 Rate Blood Pressure 121/49 121/49 124/73 Blood Pressure [Left] O2 Sat by Pulse Oximetry 12/09/19 12/10/19 23:45 00:00 Temperature Pulse Rate 70 74 Respiratory 14 12 Rate Blood Pressure 124/59 123/60 Blood Pressure [Left] O2 Sat by Pulse Oximetry - Reevaluation(s) Reevaluation #1: Patient became hypotensive again. Patient will be given more fluids and we will continue to monitor blood pressure. 12/09/19 16:40 Reevaluation #2: Patient is still severely hypotensive. Current blood pressure is 60/40. Patient is status post 3 L of fluid. Patient will be started on pressors. 12/09/19 17:31 Reevaluation #3: Patient's hemoglobin came back at 3. Patient will be given emergency blood. 12/09/19 17:53 Reevaluation #4: Patient on Levophed. We will titrate the Levophed in order to maintain a map of 70. Patient blood pressure is improving. Patient's emergency blood is at bedside and being transfused. 12/09/19 18:11 Reevaluation #5: Blood pressure is improved. Patient's skin color has improved. Patient has less pallor. 12/09/19 19:26 Patient blood pressure continues to improve. Patient on Levophed drip and receiving blood. 12/09/19 20:26 Patient is complaining of severe pain. Patient blood pressure is improved we will give the patient 0.5 of Dilaudid and decrease the Levophed. We will continue to monitor the blood pressure. I discussed all results with patient. I discussed plan of care with patient. Patient agrees with plan of care and admission. Patient to be admitted to the hospitalist service. 12/09/19 20:35 Patient's blood pressure still dependent on Levophed. Patient will have a central line placed. Patient consented to the procedure and signed a consent note. 12/09/19 23:02 Central line placed without difficulty, see procedure note. 12/09/19 23:44 Chest x-ray shows good placement of the line, the nurse was given a clearance order to access the right IJ. Another 2 units will be ordered as well. 12/10/19 00:17 - Consultations Consultation #1: Hospitalist consulted for admission. Hospitalist to admit patient. Bridge orders placed 12/09/19 20:35 - Central Line Placement Right IJ Consent Obtained: verbal consent, written consent Time Out Performed: Yes Patient Placed on Monitor/Pulse Ox: Yes Prep: mask, gown, gloves Central Line Prep: Chlorhexidine scrub, sterile drapes applied Local Anesthesia Used: Lidocaine 1% Ultrasound Used for Placement: Yes Central Line Lumen Inserted: single, triple Bloods Obtained for Lab: Yes Central Line Position: good blood return, all ports aspirated, flus, sutured in place with 2-0 Dressing Applied: Tegaderm Post Procedure X-Ray: tip of catheter in good p, pneumothorax seen Patient Tolerated Procedure: well, no complications ED Medical Decision Making - Lab Data Result diagrams: 12/09/19 22:50 12/09/19 17:00 - EKG Data -: EKG Interpreted by Me EKG shows normal: sinus rhythm, axis, intervals, QRS complexes, ST-T waves Rate: normal - Radiology Data Radiology results: report reviewed CTA CHEST, ABDOMEN, AND PELVIS WITH CONTRAST INDICATION / CLINICAL INFORMATION: FALL. WEAKNESS, ABD PAIN. PELVIC PAIN. TECHNIQUE: Axial CT images were obtained through the chest, abdomen, and pelvis after injection of 100 mL Omnipaque 350 IV contrast. 3 plane MIP and/or 3D reconstructions were produced. All CT scans at this location are performed using CT dose reduction for ALARA by means of automated exposure control. COMPARISON: CT chest abdomen pelvis 09/09/2017 FINDINGS: Heart: Nonenlarged. Small amount of coronary artery calcification. Thoracic Aorta: No significant abnormality. Great Vessels: No significant abnormality. Pulmonary Arteries: No significant abnormality. Additional Chest Findings: A small nodular density in the left upper lobe is unchanged compared with prior study in 2018 suggesting a benign etiology. Several mildly enlarged left axillary lymph nodes are not significantly changed compared with prior examination. Moderate hiatal hernia. Abdominal Aorta: Atherosclerotic calcification of the infrarenal abdominal aorta. No evidence of aneurysm or dissection. Renal arteries: No significant abnormality. Celiac artery: No significant abnormality. Superior Mesenteric Artery: No significant abnormality. Inferior mesenteric artery: No significant abnormality. Right Iliac Arteries: Mild to moderate atherosclerotic calcifications.. Left Iliac Arteries: Mild to moderate atherosclerotic calcifications.. Additional Abdominopelvic Findings: Atrophic right kidney. The bladder is distended. Moderate colonic stool burden. Colonic diverticulosis. Skeletal Structures: Cystic changes noted adjacent to the left shoulder as well as both hips. IMPRESSION: 1. There is no evidence of pulmonary embolus. 2. No evidence of aortic aneurysm or dissection. 3. No acute process identified within the chest, abdomen, or pelvis. 4. Several mildly enlarged left axillary lymph nodes are unchanged. 5. Unchanged atrophic right kidney. 6. Moderate hiatal hernia. CHEST 1 VIEW 12/09/2019 11:04 PM INDICATION / CLINICAL INFORMATION: cvl placement. COMPARISON: Chest x-ray 12/09/2019 FINDINGS: SUPPORT DEVICES: New right IJ central line has tip overlying SVC. HEART / MEDIASTINUM: No significant abnormality. LUNGS / PLEURA: No significant pulmonary or pleural abnormality. No pneumothorax. ADDITIONAL FINDINGS: Moderate degenerative arthrosis both shoulders IMPRESSION: 1. No acute findings. - Medical Decision Making Patient is a 59-year-old female that presents emergency room with complaints of weakness, lightheadedness, fall, pelvic pain, abdominal pain, hip pain. Patient found to be severely hypotensive. Patient after initial labs found to be severely anemic and given emergency blood due to her unstable vital signs. Patient also placed on Levophed due to blood pressure and hypotension. Patient blood pressure improved with Levophed and the transfusions. However the patient still required Levophed so a central line was eventually placed after admission to the hospitalist group. Patient's labs are essentially unremarkable except except for severe anemia. Patient's guaiac was negative. Patient had a CT of the head which was negative for acute finding. Patient had a CTA of the abdomen pelvis due to the possibility of a bleed due to a fall. Patient CT of the abdomen, pelvis and chest were negative for acute findings. Patient admitted to the hospital service and into the ICU. Patient received multiple transfusions. - Differential Diagnosis Anemia, pelvic bleed, fracture pelvis, fall, weakness Critical Care Time: Yes Critical care time in (mins) excluding proc time.: 80 Critical care attestation.: If time is entered above; I have spent that time in minutes in the direct care of this critically ill patient, excluding procedure time. Critical Care Time: 80 MINUTES ED Disposition Clinical Impression: Weakness, Pelvic pain, Hip pain, right, Light-headedness, Severe anemia Abdominal pain Qualifiers: Abdominal location: lower abdomen, unspecified Qualified Code(s): R10.30 - Lower abdominal pain, unspecified Fall Qualifiers: Encounter type: initial encounter Qualified Code(s): W19.XXXA - Unspecified fall, initial encounter Anemia Qualifiers: Anemia type: unspecified type Qualified Code(s): D64.9 - Anemia, unspecified Hypotension Qualifiers: Hypotension type: unspecified hypotension type Qualified Code(s): I95.9 - Hypotension, unspecified Disposition: DC-09 OP ADMIT IP TO THIS HOSP Is pt being admited?: Yes Does the pt Need Aspirin: No Condition: Critical Time of Disposition: 20:43
[2019-12-09] MEDS ORDERED: CEFEPIME/NS 2 GM/100 ML 2 GM/100 ML BAG IV ONE (16:22)
--- NOTE | 2019-12-09 17:17 | XRay Report ---
CHEST 1 VIEW INDICATION: Lightheadedness/Dizziness. COMPARISON: 05/14/2019 FINDINGS: SUPPORT DEVICES: None. HEART: Within normal limits. LUNGS/PLEURA: No acute air space or interstitial disease. ADDITIONAL FINDINGS: Bony findings in the shoulders could be seen with a rheumatologic disorder. IMPRESSION: 1. No acute findings. Signer Name: Andrew Elmore MD Signed: 12/09/2019 5:12 PM Workstation Name: [id number]
[2019-12-09 17:25] LABS: Mean Corpuscular HGB Conc 26 % (30-34); Platelet Count 413 K/mm3 (140-440); Red Blood Count 1.88 M/mm3 (3.65-5.03)
[2019-12-09 17:27] LABS: Mean Corpuscular Volume 69 fl (79-97); Red Cell Distribution Width 20.7 % (13.2-15.2)
[2019-12-09 17:27] LABS: Bacteria,Urine 1+ /HPF (Negative); Bilirubin,Urine NEG (Negative); Blood,Urine MOD (Negative); Color,Urine Yellow (Yellow); Mucus,Urine FEW /HPF; Protein,Urine <15 mg/dL mg/dL (Negative); Urobilinogen,Urine < 2.0 mg/dL (<2.0)
[2019-12-09 17:34] LABS: Amphetamine Screen,Urine PRESUMPTIVE NEGATIVE; Benzodiazepines Screen,Urine PRESUMPTIVE NEGATIVE; Cannabinoid Screen,Urine PRESUMPTIVE NEGATIVE; Cocaine Screen,Urine PRESUMPTIVE NEGATIVE; Methadone Screen,Urine PRESUMPTIVE NEGATIVE; Opiate Screen,Urine PRESUMPTIVE NEGATIVE
[2019-12-09 17:40] LABS: BUN/Creatinine Ratio 23; Blood Urea Nitrogen 16 mg/dL (7-17); Calcium 7.3 mg/dL (8.4-10.2)
[2019-12-09 17:41] LABS: Albumin 2.5 g/dL (3.9-5); Hemolysis Index 0
[2019-12-09 17:48] LABS: Alanine Aminotransferase 5 units/L (7-56); Hemoglobin 3.4 gm/dl (10.1-14.3)
[2019-12-09 17:49] LABS: Hematocrit 12.9 % (30.3-42.9)
[2019-12-09] MEDS: NORepinephrine/NS 4 MG-250 ML 4 MG/250 ML BAG IV SCH (18:04)
[2019-12-09] MEDS ORDERED: SODIUM CHLORIDE 0.9% 500 ML 500 ML ONE ×2 (18:10→20:39)
[2019-12-09] MEDS ORDERED: SODIUM CHLORIDE 0.9% 500 ML 500 ML IV ONE (18:19)
[2019-12-09 18:54] LABS: Basophils % (Manual) 0 % (0.0-1.8); Eosinophils % (Manual) 0 % (0.0-4.3); Total Cells Counted 100
[2019-12-09 18:56] LABS: Anisocytosis 1+; Hypochromasia 1+
--- NOTE | 2019-12-09 20:16 | Cat Scan Report ---
CT head/brain wo con INDICATION: weakness. TECHNIQUE: Routine CT head without contrast. All CT scans at this location are performed using CT dos e reduction for ALARA by means of automated exposure control. COMPARISON: CT head 08/17/2012 FINDINGS: BRAIN / INTRACRANIAL CONTENTS: No acute hemorrhage, mass effect, midline shift, or hydrocephalus. No appreciable acute large territorial or lacunar infarct. No chronic infarct or focal atrophy. Normal b rain volume and ventricular/sulcal size for age. ORBITS: No significant abnormality of visualized orbits. SINUSES / MASTOIDS: No significant abnormality of visualized sinuses and mastoid air cells. ADDITIONAL FINDINGS: None. IMPRESSION: 1. No acute intracranial abnormality. Signer Name: Alissa Edwards MD Signed: 12/09/2019 8:12 PM Workstation Name: [id number]
--- NOTE | 2019-12-09 20:32 | Cat Scan Report ---
CTA CHEST, ABDOMEN, AND PELVIS WITH CONTRAST INDICATION / CLINICAL INFORMATION: FALL. WEAKNESS, ABD PAIN. PELVIC PAIN. TECHNIQUE: Axial CT images were obtained through the chest, abdomen, and pelvis after injection of 100 mL Omnipa que 350 IV contrast. 3 plane MIP and/or 3D reconstructions were produced. All CT scans at this locati on are performed using CT dose reduction for ALARA by means of automated exposure control. COMPARISON: CT chest abdomen pelvis 09/09/2017 FINDINGS: Heart: Nonenlarged. Small amount of coronary artery calcification. Thoracic Aorta: No significant abnormality. Great Vessels: No significant abnormality. Pulmonary Arteries: No significant abnormality. Additional Chest Findings: A small nodular density in the left upper lobe is unchanged compared with prior study in 2018 suggesting a benign etiology. Several mildly enlarged left axillary lymph nodes a re not significantly changed compared with prior examination. Moderate hiatal hernia. Abdominal Aorta: Atherosclerotic calcification of the infrarenal abdominal aorta. No evidence of aneu rysm or dissection. Renal arteries: No significant abnormality. Celiac artery: No significant abnormality. Superior Mesenteric Artery: No significant abnormality. Inferior mesenteric artery: No significant abnormality. Right Iliac Arteries: Mild to moderate atherosclerotic calcifications.. Left Iliac Arteries: Mild to moderate atherosclerotic calcifications.. Additional Abdominopelvic Findings: Atrophic right kidney. The bladder is distended. Moderate colonic stool burden. Colonic diverticulosis. Skeletal Structures: Cystic changes noted adjacent to the left shoulder as well as both hips. IMPRESSION: 1. There is no evidence of pulmonary embolus. 2. No evidence of aortic aneurysm or dissection. 3. No acute process identified within the chest, abdomen, or pelvis. 4. Several mildly enlarged left axillary lymph nodes are unchanged. 5. Unchanged atrophic right kidney. 6. Moderate hiatal hernia. Signer Name: Alissa Edwards MD Signed: 12/09/2019 8:28 PM Workstation Name: [email or web address]
[2019-12-09] MEDS ORDERED: HYDROmorphone 1 MG/1 ML INJ IV ONE ×2 (20:41→22:29)
[2019-12-09] MEDS ORDERED: MAGNESIUM HYDROXIDE (MOM) ORAL LIQD UDC PO PRN (21:59)
[2019-12-09] MEDS ORDERED: ONDANSETRON 4 MG/2 ML INJ IV PRN (21:59)
--- NOTE | 2019-12-09 22:09 | History and Physical Report ---
History of Present Illness Date of examination: 12/09/19 Date of admission: 12/09/19 21:23 Chief complaint: Generalized weakness Fall History of present illness: 59-year-old female who presents to the emergency room today complaining of generalized weakness, lightheadedness, right hip and pelvic pain and a fall. Patient indicates that she has not been able to walk very well because she has arthritis. She was trying to take a walk to the restroom today and her legs give away on her and subsequently had a fall. She denies any head injury and denies any loss of consciousness. She also complained of hip pain and some abdominal pain which gets worse upon mo vement. Patient denies any fever or chills, no headache or dizziness, no nausea vomiting and no diarrhea, no hematuria or dysuria. She however has been having generalized weakness. She denies any chest pain or shortness of breath. Patient was brought into the emergency room by EMS and was found to be hypotensive. She was started on IV fluid and subsequently was placed on Levophed. Work-up in the emergency room reveals severe anemia with hemoglobin of about 3.0. She has been started on blood transfusion. She has known history of anemia and has had work-ups in the past including upper endoscopy and colonoscopy without any significant finding. She has been admits that she has not been following up with any physician as her primary care physician traveled out of the country. She denies any bright red blood per rectum, she denies any hematemesis and denies any black stool. Past History Past Medical History: arthritis, COPD, hypertension Past Surgical History: Other (Tubal ligation, right knee replacement, right leg surgery, left wrist surgery) Social history: no significant social history Family history: no significant family history Medications and Allergies Allergies Allergy/AdvReac Type Severity Reaction Status Date / Time No Known Allergies Allergy Verified 02/19/14 19:44 Home Medications Medication Instructions Recorded Confirmed Last Taken Type One Daily Womens 50 Plus Tab 1 each PO QDAY 09/08/17 09/08/17 09/07/17 History Acetaminophen [Tylenol Arthritis] 650 mg PO Q6H PRN #30 tablet.er 09/10/17 Unknown Rx Pantoprazole [Protonix TAB] 40 mg PO QDAY #30 tablet 09/10/17 Unknown Rx polyethylene glycoL 3350 [Miralax 17 gm PO BID PRN #30 powd.pack 09/10/17 U nknown Rx 0850] predniSONE [Prednisone] 5 mg PO BID #30 tablet 09/10/17 Unknown Rx Benzonatate [Tessalon Perles] 100 mg PO Q8HR PRN #20 capsule 05/14/19 Unknown Rx Ferrous Sulfate [Ferrous Sulfate 324 mg PO TID #90 tablet.dr 05/14/19 Unknown Rx 324 MG] traMADoL [Ultram] 50 mg PO Q6HR PRN #7 tablet 05/14/19 Unknown Rx Active Meds: Active Medications Norepinephrine (Levophed Drip 4 Mg/Ns 250 Ml) 4 mg in 250 mls @ 7.5 mls/hr IV TITR RUBY; Protocol Last Titration: 12/09/19 20:48 Dose: 6 mcg/min, 22.5 mls/hr Documented by: Review of Systems Constitutional: weakness, no fever, no chills Ears, nose, mouth and throat: no nasal congestion, no sore throat Cardiovascular: no chest pain, no palpitations, no syncope Respiratory: no cough, no shortness of breath Gastrointestinal: no abdominal pain, no nausea, no vomiting, no diarrhea Genitourinary Female: no flank pain, no dysuria, no hematuria Musculoskeletal: no neck pain, no low back pain Integumentary: no rash, no pruritis Neurological: no headaches, no confusion Psychiatric: no anxiety, no depression Exam - Constitutional Vitals: Temp Pulse Resp BP Pulse Ox 98.3 F 86 15 107/59 96 12/09/19 20:58 12/09/19 21:30 12/09/19 21:30 12/09/19 21:30 12/09/19 21:30 General appearance: Present: no acute distress, well-nourished - EENT Eyes: Present: PERRL, EOM intact. Absent: scleral icterus ENT: hearing intact, clear oral mucosa, dentition normal - Neck Neck: Present: supple, normal ROM - Respiratory Respiratory effort: normal Respiratory: bilateral: CTA - Cardiovascular Rhythm: regular Heart Sounds: Present: S1 & S2 - Extremities Extremities: no ischemia, pulses intact, pulses symmetrical, No edema, Full ROM Extremity abnormal: ulceration (Open ulcer over right shoulder about 4 cm x 3 cm in size), deformity (Bilateral wrist deformities) Peripheral Pulses: within normal limits - Abdominal General gastrointestinal: Present: soft, non-tender, non-distended, normal bowel sounds - Integumentary Integumentary: Present: clear, warm, dry - Musculoskeletal Musculoskeletal: strength equal bilaterally - Psychiatric Psychiatric: appropriate mood/affect, intact judgment & insight, memory intact, cooperative - Neurologic Neurologic: CNII-XII intact, moves all extremities HEART Score - HEART Score Troponin: Troponin T < 0.010 ng/mL (0.00-0.029) 12/09/19 17:00 Results - Labs CBC & Chem 7: 12/09/19 22:50 12/09/19 17:00 Labs: Abnormal lab results 12/09/19 12/09/19 12/09/19 Range/Units 17:00 17:00 17:39 WBC 26.2 H (4.5-11.0) K/mm3 RBC 1.88 L (3.65-5.03) M/mm3 Hgb 3.4 L* (10.1-14.3) gm/dl Hct 12.9 L* (30.3-42.9) % MCV 69 L (79-97) fl MCH 18 L (28-32) pg MCHC 26 L (30-34) % RDW 20.7 H (13.2-15.2) % Seg Neuts % (Manual) 87.0 H (40.0-70.0) % Lymphocytes % (Manual) 5.0 L (13.4-35.0) % Monocytes % (Manual) 8.0 H (0.0-7.3) % Seg Neutrophils # Man 22.8 H (1.8-7.7) K/mm3 Monocytes # (Manual) 2.1 H (0.0-0.8) K/mm3 Sodium 134 L (137-145) mmol/L Carbon Dioxide 18 L (22-30) mmol/L Calcium 7.3 L (8.4-10.2) mg/dL ALT 5 L (7-56) units/L Albumin 2.5 L (3.9-5) g/dL Crossmatch See Detail Assessment and Plan - Patient Problems (1) Severe anemia Current Visit: Yes Status: Acute Plan to address problem: Etiology is unclear. Patient currently having blood transfusion. We will monitor CBC. (2) Fall Current Visit: Yes Status: Acute Qualifiers: Encounter type: initial encounter Qualified Code(s): W19.XXXA - Unspecified fall, initial encounter Plan to address problem: Possibly secondary to generalized weakness and underlying arthritis. Will place on fall precautions (3) Hypotension Current Visit: Yes Status: Acute Qualifiers: Hypotension type: unspecified hypotension type Qualified Code(s): I95.9 - Hypotension, unspecified Plan to address problem: Patient currently on IV fluid and Levophed. Will monitor vital signs closely. (4) Rheumatoid arthritis Current Visit: No Status: Chronic Qualifiers: Rheumatoid arthritis location: hand Laterality: bilateral Plan to address problem: We will continue on routine home medications once reconciled. (5) DVT prophylaxis Current Visit: No Status: Acute Plan to address problem: Patient placed on sequential compression device. (6) Full code status Current Visit: Yes Status: Acute
[2019-12-09] MEDS ORDERED: HYDROmorphone 1 MG/1 ML INJ ONE (22:28)
[2019-12-09 23:58] LABS: Hematocrit 21.7 % (30.3-42.9); Hemoglobin 6.3 gm/dl (10.1-14.3); Mean Corpuscular HGB Conc 29 % (30-34); Mean Corpuscular Volume 72 fl (79-97); Platelet Count 473 K/mm3 (140-440); Red Blood Count 3.01 M/mm3 (3.65-5.03)
[2019-12-10 00:05] LABS: Red Cell Distribution Width 20.4 % (13.2-15.2)
[2019-12-10] MEDS ORDERED: SODIUM CHLORIDE 0.9% 500 ML 500 ML IV ONE ×2 (00:16→02:50)
--- NOTE | 2019-12-10 00:27 | XRay Report ---
CHEST 1 VIEW 12/09/2019 11:04 PM INDICATION / CLINICAL INFORMATION: cvl placement. COMPARISON: Chest x-ray 12/09/2019 FINDINGS: SUPPORT DEVICES: New right IJ central line has tip overlying SVC. HEART / MEDIASTINUM: No significant abnormality. LUNGS / PLEURA: No significant pulmonary or pleural abnormality. No pneumothorax. ADDITIONAL FINDINGS: Moderate degenerative arthrosis both shoulders IMPRESSION: 1. No acute findings. Signer Name: Carlin Campos MD Signed: 12/10/2019 12:23 AM Workstation Name: [email or web address]
[2019-12-10] MEDS ORDERED: SODIUM CHLORIDE 0.9% 1000 ML 1,000 ML ONE (01:53)
[2019-12-10] MEDS ORDERED: ACETAMINOPHEN 325 MG TAB ONE (01:53)
[2019-12-10] MEDS: SODIUM CHLORIDE 0.9% 1000 ML 1,000 ML IV SCH ×2 (01:59→21:06)
[2019-12-10] MEDS ORDERED: NORepinephrine/NS 4 MG-250 ML 4 MG/250 ML BAG IV ONE (02:00)
[2019-12-10] MEDS: NORepinephrine/NS 4 MG-250 ML 4 MG/250 ML BAG IV SCH (02:00)
[2019-12-10] MEDS: ACETAMINOPHEN 325 MG TAB PO PRN (02:02)
[2019-12-10] MEDS ORDERED: KETOROLAC 30 MG/1 ML INJ IV ONE (03:49)
[2019-12-10 06:52] LABS: Anisocytosis 1+; Band Neutrophils # (Manual) 0.1 K/mm3; Basophils % (Manual) 0 % (0.0-1.8); Eosinophils % (Manual) 0 % (0.0-4.3); Hypochromasia 1+; Total Cells Counted 200
[2019-12-10 06:53] LABS: Platelet Estimate Consistent w Auto
--- NOTE | 2019-12-10 10:15 | Progress Note ---
Assessment and Plan Assessment and plan: Severe anemia. Patient denies any hematemesis, melena or hematochezia. Continue transfusion of PRBCs. Follow-up H&H. Check occult stool. GI consultation. Hypotension. Etiology likely secondary to hypovolemia from severe anemia. Continue pressors and PRBCs. Rheumatoid arthritis. Continue home medications. Fall. PT/OT. History Interval history: No new issues overnight. Hospitalist Physical - Constitutional Vitals: Temp Pulse Resp BP Pulse Ox 97.6 F 76 18 141/64 96 12/10/19 08:00 12/10/19 08:00 12/10/19 08:00 12/10/19 08:00 12/10/19 08:00 General appearance: Present: no acute distress, well-nourished - EENT Eyes: Present: PERRL, EOM intact ENT: hearing intact, clear oral mucosa, dentition normal - Neck Neck: Present: supple, normal ROM - Respiratory Respiratory effort: normal Respiratory: bilateral: CTA - Cardiovascular Rhythm: regular Heart Sounds: Present: S1 & S2. Absent: gallop, rub - Extremities Extremities: no ischemia, No edema, Full ROM - Abdominal General gastrointestinal: soft, non-tender, non-distended, normal bowel sounds - Integumentary Integumentary: Present: clear, warm, dry - Neurologic Neurologic: CNII-XII intact, moves all extremities HEART Score - HEART Score Troponin: Troponin T < 0.010 ng/mL (0.00-0.029) 12/09/19 17:00 Results - Labs CBC & Chem 7: 12/09/19 22:50 12/09/19 17:00 Labs: Laboratory Last Values WBC 28.5 K/mm3 (4.5-11.0) H 12/09/19 22:50 RBC 3.01 M/mm3 (3.65-5.03) L 12/09/19 22:50 Hgb 6.3 gm/dl (10.1-14.3) L 12/09/19 22:50 Hct 21.7 % (30.3-42.9) L D 12/09/19 22:50 MCV 72 fl (79-97) L 12/09/19 22:50 MCH 21 pg (28-32) L 12/09/19 22:50 MCHC 29 % (30-34) L 12/09/19 22:50 RDW 20.4 % (13.2-15.2) H 12/09/19 22:50 Plt Count 473 K/mm3 (140-440) H 12/09/19 22:50 Add Manual Diff Complete 12/09/19 22:50 Total Counted 200 12/09/19 22:50 Seg Neuts % (Manual) 90.0 % (40.0-70.0) H 12/09/19 22:50 Band Neutrophils % 0.5 % 12/09/19 22:50 Lymphocytes % (Manual) 5.5 % (13.4-35.0) L 12/09/19 22:50 Reactive Lymphs % (Man) 0 % 12/09/19 22:50 Monocytes % (Manual) 4.0 % (0.0-7.3) 12/09/19 22:50 Eosinophils % (Manual) 0 % (0.0-4.3) 12/09/19 22:50 Basophils % (Manual) 0 % (0.0-1.8) 12/09/19 22:50 Metamyelocytes % 0 % 12/09/19 22:50 Myelocytes % 0 % 12/09/19 22:50 Promyelocytes % 0 % 12/09/19 22:50 Blast Cells % 0 % 12/09/19 22:50 Nucleated RBC % Not Reportable 12/09/19 22:50 Seg Neutrophils # Man 25.7 K/mm3 (1.8-7.7) H 12/09/19 22:50 Band Neutrophils # 0.1 K/mm3 12/09/19 22:50 Lymphocytes # (Manual) 1.6 K/mm3 (1.2-5.4) 12/09/19 22:50 Abs React Lymphs (Man) 0.0 K/mm3 12/09/19 22:50 Monocytes # (Manual) 1.1 K/mm3 (0.0-0.8) H 12/09/19 22:50 Eosinophils # (Manual) 0.0 K/mm3 (0.0-0.4) 12/09/19 22:50 Basophils # (Manual) 0.0 K/mm3 (0.0-0.1) 12/09/19 22:50 Metamyelocytes # 0.0 K/mm3 12/09/19 22:50 Myelocytes # 0.0 K/mm3 12/09/19 22:50 Promyelocytes # 0.0 K/mm3 12/09/19 22:50 Blast Cells # 0.0 K/mm3 12/09/19 22:50 WBC Morphology Not Reportable 12/09/19 22:50 Hypersegmented Neuts Not Reportable 12/09/19 22:50 Hyposegmented Neuts Not Reportable 12/09/19 22:50 Hypogranular Neuts Not Reportable 12/09/19 22:50 Smudge Cells Not Reportable 12/09/19 22:50 Toxic Granulation Not Reportable 12/09/19 22:50 Toxic Vacuolation Not Reportable 12/09/19 22:50 Dohle Bodies Not Reportable 12/09/19 22:50 Pelger-Huet Anomaly Not Reportable 12/09/19 22:50 Robbie Rods Not Reportable 12/09/19 22:50 Platelet Estimate Consistent w auto 12/09/19 22:50 Clumped Platelets Not Reportable 12/09/19 22:50 Plt Clumps, EDTA Not Reportable 12/09/19 22:50 Large Platelets Not Reportable 12/09/19 22:50 Giant Platelets Not Reportable 12/09/19 22:50 Platelet Satelliting Not Reportable 12/09/19 22:50 Plt Morphology Comment Not Reportable 12/09/19 22:50 RBC Morphology Not Reportable 12/09/19 22:50 Dimorphic RBCs Not Reportable 12/09/19 22:50 Polychromasia Not Reportable 12/09/19 22:50 Hypochromasia 1+ 12/09/19 22:50 Poikilocytosis Not Reportable 12/09/19 22:50 Anisocytosis 1+ 12/09/19 22:50 Microcytosis 1+ 12/09/19 22:50 Macrocytosis Not Reportable 12/09/19 22:50 Spherocytes Not Reportable 12/09/19 22:50 Pappenheimer Bodies Not Reportable 12/09/19 22:50 Sickle Cells Not Reportable 12/09/19 22:50 Target Cells Not Reportable 12/09/19 22:50 Tear Drop Cells Not Reportable 12/09/19 22:50 Ovalocytes Not Reportable 12/09/19 22:50 Helmet Cells Not Reportable 12/09/19 22:50 [place] Bodies Not Reportable 12/09/19 22:50 [place] Rings Not Reportable 12/09/19 22:50 Nikos Cells Not Reportable 12/09/19 22:50 Bite Cells Not Reportable 12/09/19 22:50 Crenated Cell Not Reportable 12/09/19 22:50 Elliptocytes Not Reportable 12/09/19 22:50 Acanthocytes (Spur) Not Reportable 12/09/19 22:50 Rouleaux Not Reportable 12/09/19 22:50 Hemoglobin C Crystals Not Reportable 12/09/19 22:50 Schistocytes Not Reportable 12/09/19 22:50 Malaria parasites Not Reportable 12/09/19 22:50 Phillip Bodies Not Reportable 12/09/19 22:50 Hem Pathologist Commnt No 12/09/19 22:50 Sodium 134 mmol/L (137-145) L 12/09/19 17:00 Potassium 3.9 mmol/L (3.6-5.0) 12/09/19 17:00 Chloride 103.5 mmol/L (98-107) 12/09/19 17:00 Carbon Dioxide 18 mmol/L (22-30) L 12/09/19 17:00 Anion Gap 16 mmol/L 12/09/19 17:00 BUN 16 mg/dL (7-17) 12/09/19 17:00 Creatinine 0.7 mg/dL (0.7-1.2) 12/09/19 17:00 Estimated GFR > 60 ml/min 12/09/19 17:00 BUN/Creatinine Ratio 23 % 12/09/19 17:00 Glucose 80 mg/dL (65-100) 12/09/19 17:00 Lactic Acid 1.20 mmol/L (0.7-2.0) 12/09/19 17:00 Calcium 7.3 mg/dL (8.4-10.2) L 12/09/19 17:00 Total Bilirubin 0.20 mg/dL (0.1-1.2) 12/09/19 17:00 AST 8 units/L (5-40) 12/09/19 17:00 ALT 5 units/L (7-56) L 12/09/19 17:00 Alkaline Phosphatase 116 units/L (35-129) 12/09/19 17:00 Total Creatine Kinase 84 units/L (30-135) 12/09/19 17:00 CK-MB (CK-2) 2.0 ng/mL (0.0-4.0) 12/09/19 17:00 CK-MB (CK-2) Rel Index 2.3 (0-4) 12/09/19 17:00 Troponin T < 0.010 ng/mL (0.00-0.029) 12/09/19 17:00 Total Protein 6.7 g/dL (6.3-8.2) 12/09/19 17:00 Albumin 2.5 g/dL (3.9-5) L 12/09/19 17:00 Albumin/Globulin Ratio 0.6 % 12/09/19 17:00 Urine Color Yellow (Yellow) 12/09/19 17:02 Urine Turbidity Clear (Clear) 12/09/19 17:02 Urine pH 5.0 (5.0-7.0) 12/09/19 17:02 Ur Specific [place] 1.011 (1.003-1.030) 12/09/19 17:02 Urine Protein <15 mg/dl mg/dL (Negative) 12/09/19 17:02 Urine Glucose (UA) Neg mg/dL (Negative) 12/09/19 17:02 Urine Ketones Neg mg/dL (Negative) 12/09/19 17:02 Urine Blood Mod (Negative) 12/09/19 17:02 Urine Nitrite Neg (Negative) 12/09/19 17:02 Urine Bilirubin Neg (Negative) 12/09/19 17:02 Urine Urobilinogen < 2.0 mg/dL (<2.0) 12/09/19 17:02 Ur Leukocyte Esterase Neg (Negative) 12/09/19 17:02 Urine WBC (Auto) 1.0 /HPF (0.0-6.0) 12/09/19 17:02 Urine RBC (Auto) 1.0 /HPF (0.0-6.0) 12/09/19 17:02 Urine Bacteria (Auto) 1+ /HPF (Negative) 12/09/19 17:02 Urine Mucus Few /HPF 12/09/19 17:02 Urine Opiates Screen Presumptive negative 12/09/19 17:02 Urine Methadone Screen Presumptive negative 12/09/19 17:02 Ur Barbiturates Screen Presumptive negative 12/09/19 17:02 Ur Phencyclidine Scrn Presumptive negative 12/09/19 17:02 Ur Amphetamines Screen Presumptive negative 12/09/19 17:02 U Benzodiazepines Scrn Presumptive negative 12/09/19 17:02 Urine Cocaine Screen Presumptive negative 12/09/19 17:02 U Marijuana (THC) Screen Presumptive negative 12/09/19 17:02 Drugs of Abuse Note Disclamer 12/09/19 17:02 Blood Type A POSITIVE 12/09/19 17:39 Antibody Screen Negative 12/09/19 17:39 Crossmatch See Detail 12/09/19 17:39 Microbiology: Microbiology 12/09/19 17:02 Urine,Clean Catch Urine Culture - Preliminary NO GROWTH AFTER 24 HOURS 12/09/19 17:07 Peripheral/Venous Blood Culture - Preliminary Culture in Progress 12/09/19 17:00 Peripheral/Venous Blood Culture - Preliminary Culture in Progress Gunter/IV: IV Catheter Type [Right INT / Saline Lock Antecubital] Active Medications - Current Medications Current Medications: Generic Name Dose Route Start Last Admin Trade Name Freq PRN Reason Stop Dose Admin Acetaminophen 650 mg 12/09/19 21:59 12/10/19 02:02 Tylenol PO 650 mg Q4H PRN Administration Pain MILD(1-3)/Fever >100.5/GARCIA Norepinephrine 4 mg in 250 mls @ 7.5 mls/hr 12/09/19 18:00 12/10/19 08:00 Levophed Drip 4 Mg/Ns 250 Ml IV 0 mcg/min TITR RUBY 0 mls/hr Titration Protocol 2 MCG/MIN Sodium Chloride 1,000 mls @ 75 mls/hr 12/09/19 22:00 12/10/19 01:59 Nacl 0.9% 1000 Ml IV 75 mls/hr DIRECT RUBY Administration Magnesium Hydroxide 30 ml 12/09/19 21:59 Milk Of Magnesia PO Q4H PRN Constipation Ondansetron HCl 4 mg 12/09/19 21:59 Zofran IV Q8H PRN Nausea And Vomiting Sodium Chloride 10 ml 12/09/19 22:00 Sodium Chloride Flush Syringe 10 Ml IV BID RUBY Sodium Chloride 10 ml 12/09/19 21:59 Sodium Chloride Flush Syringe 10 Ml IV PRN PRN LINE FLUSH
[2019-12-10] MEDS: MORPHINE 2 MG/1 ML INJ IV PRN ×3 (11:38→23:34)
--- NOTE | 2019-12-10 11:57 | Consultation ---
History of Present Illness Consult date: 12/10/19 Requesting physician: JACKELINE JAVIER History of present illness: 59-year-old female who presented to the emergency room complaining of genera lized weakness, lightheadedness, right hip and pelvic pain and a fall. Patient indicates that she has not been able to walk very well because she has arthritis. She was trying to take a walk to the restroom today and her legs give away on her and subsequently had a fall. She denies any head injury and denies any loss of consciousness. She also complained of hip pain and some abdominal pain which gets worse upon movement. Patient denies any fever or chills, no headache or dizziness, no nausea vomiting and no diarrhea, no hematuria or dysuria. She however has been having generalized weakness. She denies any chest pain or shortness of breath. Patient was brought into the emergency room by EMS and was found to be hypotensive. She was started on IV fluid and subsequently was placed on Norepinehrine. She has received a total of 5 units of PRBC since presentation Work-up in the emergency room reveals severe anemia with hemoglobin of about 3.0. She has been started on blood transfusion. She has known history of anemia and has had work-ups in the past including upper endoscopy and colonoscopy without any significant finding. She has been admits that she has not been following up with any physician as her primary care physician traveled out of the country. She denies any bright red blood per rectum, she denies any hematemesis and denies any black stool. She denies any vaginal bleeding She has been admitted to the critical care unit and I have been consulted for critical care management. Patient was seen and examined. Vitals, labs, medications, chart reviewed. She has ongoing complaints of left knee pain and right hip pain. She is on Norepinpehrine at 2mcg with soft BP Past History Past Medical History: arthritis, COPD, hypertension Past Surgical History: Other (Tubal ligation, right knee replacement, right leg surgery, left wrist surgery) Social history: no significant social history Family history: no significant family history Medications and Allergies Allergies Allergy/AdvReac Type Severity Reaction Status Date / Time No Known Allergies Allergy Verified 02/19/14 19:44 Home Medications Medication Instructions Recorded Confirmed Last Taken Type One Daily Womens 50 Plus Tab 1 each PO QDAY 09/08/17 09/08/17 09/07/17 History Acetaminophen [Tylenol Arthritis] 650 mg PO Q6H PRN #30 tablet.er 09/10/17 Unknown Rx Pantoprazole [Protonix TAB] 40 mg PO QDAY #30 tablet 09/10/17 Unknown Rx polyethylene glycoL 3350 [Miralax 17 gm PO BID PRN #30 powd.pack 09/10/17 Unknown Rx 3350] predniSONE [Prednisone] 5 mg PO BID #30 tablet 09/10/17 Unknown Rx Benzonatate [Tessalon Perles] 100 mg PO Q8HR PRN #20 capsule 05/14/19 Unknown Rx Ferrous Sulfate [Ferrous Sulfate 324 mg PO TID #90 tablet.dr 05/14/19 Unknown Rx 324 MG] traMADoL [Ultram] 50 mg PO Q6HR PRN #7 tablet 05/14/19 Unknown Rx Active Meds: Active Medications Acetaminophen (Tylenol) 650 mg PO Q4H PRN PRN Reason: Pain MILD(1-3)/Fever >100.5/GARCIA Last Admin: 12/10/19 02:02 Dose: 650 mg Documented by: Norepinephrine (Levophed Drip 4 Mg/Ns 250 Ml) 4 mg in 250 mls @ 7.5 mls/hr IV TITR RUBY; Protocol Last Titration: 12/10/19 08:00 Dose: 0 mcg/min, 0 mls/hr Documented by: Sodium Chloride (Nacl 0.9% 1000 Ml) 1,000 mls @ 75 mls/hr IV DIRECT RUBY Last Admin: 12/10/19 01:59 Dose: 75 mls/hr Documented by: Sodium Chloride (Nacl 0.9% 250ml) 250 mls @ 999 mls/hr IV DIRECT RUBY Stop: 12/10/19 12:16 Magnesium Hydroxide (Milk Of Magnesia) 30 ml PO Q4H PRN PRN Reason: Constipation Morphine Sulfate (Morphine) 2 mg IV Q4H PRN PRN Reason: Pain, Moderate (4-6) Last Admin: 12/10/19 11:38 Dose: 2 mg Documented by: Ondansetron HCl (Zofran) 4 mg IV Q8H PRN PRN Reason: Nausea And Vomiting Pantoprazole Sodium (Protonix) 40 mg IV BID RUBY Sodium Chloride (Sodium Chloride Flush Syringe 10 Ml) 10 ml IV BID RUBY Last Admin: 12/10/19 10:54 Dose: Not Given Documented by: Sodium Chloride (Sodium Chloride Flush Syringe 10 Ml) 10 ml IV PRN PRN PRN Reason: LINE FLUSH Review of Systems Constitutional: no weight loss, no weight gain, no fever, no chills, no sweats Cardiovascular: lightheadedness, no chest pain, no orthopnea, no palpitations, no rapid/irregular heart beat, no edema, no syncope Respiratory: dyspnea on exertion, no cough, no cough with sputum, no excessive sputum, no hemoptysis, no shortness of breath, no congestion, no wheezing Gastrointestinal: no abdominal pain, no nausea, no vomiting, no constipation, no hematemesis, no coffee ground emesis, no BRBPR, no melena, no hematochezia Rectal: no pain, no incontinence, no bleeding Musculoskeletal: arthritis, other (fall) Neurological: no paralysis, no weakness, no tingling, no seizures, no syncope, no tremors Physical Examination Vital signs: Vital Signs Temp Pulse Resp BP Pulse Ox 98.2 F 97 H 16 78/45 99 12/09/19 16:01 12/09/19 16:01 12/09/19 16:01 12/09/19 16:01 12/09/19 16:01 General appearance: appears uncomfortable, other (atraumatic, normocephalic, ch ronically ill looking woman) Eyes: non-icteric ENT: oropharynx dry Neck: supple, no lymphadenopathy, no JVD Effort: normal Ascultation: Bilateral: clear, diminished breath sounds Cardiovascular: regular rate and rhythm, other (S1,S2) Gastrointestinal: normoactive bowel sounds, soft, non-tender, non-distended Integumentary: other (joint deformities, see admission photographs) Extremities: pink and warm, other (Extremities: no ischemia, pulses intact, pulses symmetrical, No edema, Full ROM ) Musculoskeletal: joint tenderness (Left knee with swelling), other (hand joint deformities and some subluxationExtremity abnormal: ulceration (Open ulcer over right shoulder about 4 cm x 3 cm in size), deformity (Bilateral wrist deformities)) normal mental status, pupils equal and round, CN II-XII normal, motor strength normal and anxious, other (in pain and uncomfortable) Results - Laboratory Findings CBC and BMP: 12/10/19 11:45 12/10/19 11:45 Abnormal lab findings: Abnormal Labs 12/09/19 12/09/19 12/09/19 17:00 17:00 17:39 WBC 26.2 H RBC 1.88 L Hgb 3.4 L* Hct 12.9 L* MCV 69 L MCH 18 L MCHC 26 L RDW 20.7 H Plt Count Seg Neuts % (Manual) 87.0 H Lymphocytes % (Manual) 5.0 L Monocytes % (Manual) 8.0 H Seg Neutrophils # Man 22.8 H Monocytes # (Manual) 2.1 H Sodium 134 L Carbon Dioxide 18 L Calcium 7.3 L ALT 5 L Albumin 2.5 L Crossmatch See Detail 12/09/19 22:50 WBC 28.5 H RBC 3.01 L Hgb 6.3 L Hct 21.7 L D MCV 72 L MCH 21 L MCHC 29 L RDW 20.4 H Plt Count 473 H Seg Neuts % (Manual) 90.0 H Lymphocytes % (Manual) 5.5 L Monocytes % (Manual) Seg Neutrophils # Man 25.7 H Monocytes # (Manual) 1.1 H Sodium Carbon Dioxide Calcium ALT Albumin Crossmatch - Diagnostic Findings Chest x-ray: image reviewed (No acute pulmaonry infitrates) CT scan - chest: image reviewed (No pulmonary embolism, chronic lung nodule) Assessment and Plan Severe anemia-microcytic Hypotension possibly secondary to severe anemia Fall Rheumatoid arthritis History of tobacco use disorder h/o COPD RECOMMENDATIONS -Wean Norepinephrine for target MAP > 65 mmHg or SBP >110 -Supportive transfusions. If she receives any further PRBCs, will need to use massive blood transfusion protocol -Serial H and H -FOBT, GI consult -BID PPI dosing - Wean supplemental oxygen for target O2 sats > 90% -Bronchodilators per protocol, chronic COPD medications - Accuchecks with glycemic control per SSI (Target blood glucose of 140-180 mg/dL; avoid hypoglycemia) -Pain management, avoid NSAIDs -Get XR of the left knee r/o fracture -Fall precautions - Avoid benzodiazepines, reduce the possibility of delirium - prn analgesia per CPOT score - Maintenance of sleep-wake cycle, avoid delirium -SCDs for VTE prophylaxis - Mobility protocol, off loading and skin assessment for pressure ulcer prevention - Monitor hemodynamics closely -Supportive transfusions as indicated to keep HgB >7g/dL -Chronic home medications -Smoking cessation counselling - continue other care per attending / other consultants Discussed with the ICU team-RT,RN, Case management, acute care registered nurse and clinical pharmacist Life threatening condition- Severe microcytic anemia requiring massive blood transfusion and vasopressor support Mortality/Morbidity- High Complexity of medical decision making- High CONDITION: CRITICAL PROGNOSIS: GUARDED CODE STATUS: FULL CODE The high probability of a clinically significant, sudden or life-threatening deterioration of the [hematologic & cardiovascular] system(s) required my full and direct attention, intervention and personal management. The aggregate critical care time was [31] minutes without overlap. Time includes spent on; [x] Data Review and interpretation [x] Patient assessment and monitoring of vital signs [x] Documentation [x] Medication orders and management
[2019-12-10] MEDS ORDERED: SODIUM CHLORIDE 0.9% 250ML 250 ML IV SCH (12:00)
[2019-12-10] MEDS: PANTOPRAZOLE 40 MG INJ IV SCH ×2 (12:10→21:06)
[2019-12-10 12:24] LABS: Basophils # (Auto) 0.1 K/mm3 (0.0-0.1); Basophils % (Auto) 0.4 % (0.0-1.8); Eosinophils % (Auto) 0.2 % (0.0-4.3); Hematocrit 27.6 % (30.3-42.9); Hemoglobin 8.5 gm/dl (10.1-14.3); Lymphocytes # (Auto) 1.3 K/mm3 (1.2-5.4); Lymphocytes % (Auto) 7.1 % (13.4-35.0); Mean Corpuscular HGB Conc 31 % (30-34); Mean Corpuscular Volume 77 fl (79-97); Monocytes # (Auto) 0.6 K/mm3 (0.0-0.8); Monocytes % (Auto) 3.2 % (0.0-7.3); Platelet Count 390 K/mm3 (140-440); Red Blood Count 3.61 M/mm3 (3.65-5.03)
[2019-12-10 12:33] LABS: Red Cell Distribution Width 23.2 % (13.2-15.2)
[2019-12-10 12:37] LABS: BUN/Creatinine Ratio 28; Blood Urea Nitrogen 17 mg/dL (7-17); Calcium 7.5 mg/dL (8.4-10.2); Hemolysis Index 4; INR 1.46 (0.87-1.13)
--- NOTE | 2019-12-10 23:06 | XRay Report ---
LEFT KNEE 3 VIEWS INDICATION / CLINICAL INFORMATION: Left knee swelling and pain status post fall 2 days ago.. COMPARISON: None available. FINDINGS: Moderate left knee effusion is present. Advanced tricompartmental left knee degenerative arthrosis is present. There is lateral subluxation of the tibia with respect to the femur with indistinct cortex and erosive change within the lateral femoral tibial compartment as well as the patellofemoral compar tments suggestive for septic arthritis/osteomyelitis. There is also moderate diffuse soft tissue swel ling. Signer Name: Carlin Campos MD Signed: 12/10/2019 11:02 PM Workstation Name: [id number]
[2019-12-11] MEDS: MORPHINE 2 MG/1 ML INJ IV PRN ×4 (06:13→22:13)
--- NOTE | 2019-12-11 09:34 | Progress Note ---
Assessment and Plan Severe anemia-microcytic Hypotension possibly secondary to severe anemia Fall Rheumatoid arthritis History of tobacco use disorder h/o COPD PLAN -Remove RIJ CVC and place peripheral IVs -Hemoglobin is stable at 6.5g/dL -Stable for transfer out of the ICU -Clear liquid diet, until after she is seen by GI. -Left knee XR - no fracture -PT/OT to evaluate and treat -Supportive transfusions. -Serial H and H -FOBT, GI consult -BID PPI dosing - Wean supplemental oxygen for target O2 sats > 90% -Bronchodilators per protocol, chronic COPD medications - Accuchecks with glycemic control per SSI (Target blood glucose of 140-180 mg/dL; avoid hypoglycemia) -Pain management, avoid NSAIDs -Fall precautions - Avoid benzodiazepines, reduce the possibility of delirium - prn analgesia perpain score - Maintenance of sleep-wake cycle, avoid delirium -SCDs for VTE prophylaxis - Mobility protocol, off loading and skin assessment for pressure ulcer prevention - Monitor hemodynamics closely -Supportive transfusions as indicated to keep HgB >7g/dL -Chronic home medications -Smoking cessation counselling - continue other care per attending / other consultants Subjective Date of service: 12/11/19 Interval history: Follow up for severe anemia; s/p fall; hypotension; Seen and examined. No adverse overnight events reported. Vitals, labs, medications, chart reviewed. Nursing staff consulted. Off vasopressor support with BP in an acceptable range She has on going pain, denies any chest pain, no shortness of breath, no fevers or chills. No diarrhea or vomiting Objective Vital Signs - 12hr 12/10/19 12/10/19 12/10/19 21:40 21:50 22:00 Temperature Pulse Rate 76 85 89 Pulse Rate [ Right Dorsalis Pedis] Respiratory 18 18 14 Rate Blood Pressure 96/49 84/51 105/54 O2 Sat by Pulse 95 95 97 Oximetry 12/10/19 12/10/19 12/10/19 22:10 22:20 22:30 Temperature Pulse Rate 80 77 93 H Pulse Rate [ Right Dorsalis Pedis] Respiratory 19 17 12 Rate Blood Pressure 105/54 97/57 123/60 O2 Sat by Pulse 96 95 91 Oximetry 12/10/19 12/10/19 12/10/19 22:40 22:50 23:00 Temperature Pulse Rate 94 H 81 82 Pulse Rate [ Right Dorsalis Pedis] Respiratory 21 19 19 Rate Blood Pressure 123/60 92/48 100/40 O2 Sat by Pulse 95 95 96 Oximetry 12/10/19 12/10/19 12/10/19 23:10 23:20 23:30 Temperature Pulse Rate 92 H 91 H 97 H Pulse Rate [ Right Dorsalis Pedis] Respiratory 17 20 19 Rate Blood Pressure 100/40 95/50 92/48 O2 Sat by Pulse 97 96 91 Oximetry 12/10/19 12/10/19 12/10/19 23:31 23:34 23:40 Temperature 98.7 F Pulse Rate 90 Pulse Rate [ Right Dorsalis Pedis] Respiratory 21 24 Rate Blood Pressure 110/56 O2 Sat by Pulse 96 Oximetry 12/10/19 12/11/19 12/11/19 23:50 00:00 00:04 Temperature Pulse Rate 92 H 83 Pulse Rate [ 82 Right Dorsalis Pedis] Respiratory 13 18 20 Rate Blood Pressure 104/49 97/39 O2 Sat by Pulse 90 91 Oximetry 12/11/19 12/11/19 12/11/19 00:10 00:20 00:30 Temperature Pulse Rate 85 86 90 Pulse Rate [ Right Dorsalis Pedis] Respiratory 18 19 18 Rate Blood Pressure 97/39 91/48 99/43 O2 Sat by Pulse 94 94 95 Oximetry 12/11/19 12/11/19 12/11/19 00:40 00:50 01:00 Temperature Pulse Rate 79 86 91 H Pulse Rate [ Right Dorsalis Pedis] Respiratory 19 18 17 Rate Blood Pressure 99/43 96/42 106/35 O2 Sat by Pulse 94 95 93 Oximetry 12/11/19 12/11/19 12/11/19 01:10 01:20 01:30 Temperature Pulse Rate 84 80 85 Pulse Rate [ Right Dorsalis Pedis] Respiratory 18 17 19 Rate Blood Pressure 106/35 106/46 111/56 O2 Sat by Pulse 93 94 94 Oximetry 12/11/19 12/11/19 12/11/19 01:40 01:50 02:00 Temperature Pulse Rate 86 80 79 Pulse Rate [ Right Dorsalis Pedis] Respiratory 19 19 18 Rate Blood Pressure 111/56 103/53 104/49 O2 Sat by Pulse 95 95 94 Oximetry 12/11/19 12/11/19 12/11/19 02:10 02:20 02:30 Temperature Pulse Rate 79 81 83 Pulse Rate [ Right Dorsalis Pedis] Respiratory 18 17 16 Rate Blood Pressure 104/49 98/50 104/45 O2 Sat by Pulse 94 94 93 Oximetry 12/11/19 12/11/19 12/11/19 02:40 02:50 03:00 Temperature Pulse Rate 81 81 83 Pulse Rate [ Right Dorsalis Pedis] Respiratory 18 17 17 Rate Blood Pressure 104/45 100/39 108/48 O2 Sat by Pulse 93 96 92 Oximetry 12/11/19 12/11/19 12/11/19 03:10 03:20 03:30 Temperature Pulse Rate 82 90 83 Pulse Rate [ Right Dorsalis Pedis] Respiratory 17 15 17 Rate Blood Pressure 108/48 115/52 116/56 O2 Sat by Pulse 94 94 93 Oximetry 12/11/19 12/11/19 12/11/19 03:34 03:49 04:00 Temperature 98.4 F Pulse Rate 78 Pulse Rate [ 87 Right Dorsalis Pedis] Respiratory Rate Blood Pressure O2 Sat by Pulse 97 Oximetry 12/11/19 12/11/19 12/11/19 06:13 06:43 08:00 Temperature Pulse Rate Pulse Rate [ 80 Right Dorsalis Pedis] Respiratory 20 20 Rate Blood Pressure O2 Sat by Pulse 95 Oximetry Constitutional: appears uncomfortable, other (atraumatic, normocephalic, chronically ill looking woman) Eyes: non-icteric ENT: oropharynx dry, other (RIJ CVC) Neck: supple, no lymphadenopathy, no JVD Effort: normal Ascultation: Bilateral: clear, diminished breath sounds Cardiovascular: regular rate and rhythm, other (S1,S2) Gastrointestinal: normoactive bowel sounds, soft, non-tender, non-distended Integumentary: other (joint deformities, see admission photographs) Extremities: pink and warm, other (Extremities: no ischemia, pulses intact, pulses symmetrical, No edema, Full ROM ) Neurologic: normal mental status, pupils equal and round, CN II-XII normal, motor strength normal and Psychiatric: anxious, other (in pain and uncomfortable) CBC and BMP: 12/11/19 Unknown 12/10/19 11:45 ABG, PT/INR, D-dimer: PT/INR, D-dimer PT 17.4 Sec. (12.2-14.9) H 12/10/19 11:45 INR 1.46 (0.87-1.13) H 12/10/19 11:45 Abnormal lab findings: Abnormal Labs 12/09/19 12/09/19 12/09/19 17:00 17:00 17:39 WBC 26.2 H RBC 1.88 L Hgb 3.4 L* Hct 12.9 L* MCV 69 L MCH 18 L MCHC 26 L RDW 20.7 H Plt Count Lymph % (Auto) Seg Neutrophils % Seg Neuts % (Manual) 87.0 H Lymphocytes % (Manual) 5.0 L Monocytes % (Manual) 8.0 H Seg Neutrophils # Seg Neutrophils # Man 22.8 H Monocytes # (Manual) 2.1 H PT INR Sodium 134 L Carbon Dioxide 18 L Creatinine Calcium 7.3 L ALT 5 L Albumin 2.5 L Crossmatch See Detail 12/09/19 12/10/19 12/10/19 22:50 11:45 11:45 WBC 28.5 H 18.4 H RBC 3.01 L 3.61 L Hgb 6.3 L 8.5 L Hct 21.7 L D 27.6 L MCV 72 L 77 L MCH 21 L 24 L MCHC 29 L RDW 20.4 H 23.2 H Plt Count 473 H Lymph % (Auto) 7.1 L Seg Neutrophils % 89.1 H Seg Neuts % (Manual) 90.0 H Lymphocytes % (Manual) 5.5 L Monocytes % (Manual) Seg Neutrophils # 16.4 H Seg Neutrophils # Man 25.7 H Monocytes # (Manual) 1.1 H PT 17.4 H INR 1.46 H Sodium Carbon Dioxide Creatinine Calcium ALT Albumin Crossmatch 12/10/19 11:45 WBC RBC Hgb Hct MCV MCH MCHC RDW Plt Count Lymph % (Auto) Seg Neutrophils % Seg Neuts % (Manual) Lymphocytes % (Manual) Monocytes % (Manual) Seg Neutrophils # Seg Neutrophils # Man Monocytes # (Manual) PT INR Sodium Carbon Dioxide 21 L Creatinine 0.6 L Calcium 7.5 L ALT Albumin Crossmatch Allied health notes reviewed: nursing
[2019-12-11 10:21] LABS: Hemoglobin 8.4 gm/dl (10.1-14.3); Mean Corpuscular HGB Conc 31 % (30-34); Mean Corpuscular Volume 77 fl (79-97); Platelet Count 370 K/mm3 (140-440); Red Blood Count 3.52 M/mm3 (3.65-5.03)
[2019-12-11 10:22] LABS: Red Cell Distribution Width 23.1 % (13.2-15.2)
[2019-12-11] MEDS: PANTOPRAZOLE 40 MG INJ IV SCH ×2 (10:33→22:13)
[2019-12-11] MEDS: SODIUM CHLORIDE 0.9% 1000 ML 1,000 ML IV SCH (10:34)
--- NOTE | 2019-12-11 16:57 | Consultation ---
History of Present Illness - Reason for Consult Consult date: 12/11/19 Anemia Requesting physician: JEEVAN PAZ - History of Present Illness Ms. Apodaca is a 59-year-old woman who presented to the emergency room with weakness and after having fallen. She was found to have low blood pressure, and profound anemia with a hemoglobin of 3.4 and an MCV of 64. She was admitted for further management. Patient has pain all over, and was seeing a pain management doctor in the past. She lives alone and is not following up with anyone routinely. She has a history of anemia and was hospitalized here on September [id number] with a hemoglobin of 3.4. She was seen by GI at that time, and states that she had an outpatient upper endoscopy and colonoscopy. She states that she has had 2 of each procedure and they have been negative and she does not have an etiology for her anemia. She has never seen a insurance account manager and has not followed up with a primary care physician. She denies abdominal pain, nausea, vomiting, change in usual shortness of breath. Bowel movements occur on an every other day basis without any change. She has seen no GI bleeding that is visible. She denies aspirin and nonsteroidal usage, and takes Tylenol for her pain. Her weight is stable. Meds reviewed. Past History Past Medical History: arthritis (Rheumatoid), COPD, hypertension Past Surgical History: Other (Tubal ligation, right knee replacement, right leg surgery, left wrist surgery) Social history: no significant social history. denies: smoking (quit 06/2019), alcohol abuse Family history: no significant family history Medications and Allergies Allergies Allergy/AdvReac Type Severity Reaction Status Date / Time No Known Allergies Allergy Verified 02/19/14 19:44 Home Medications Medication Instructions Recorded Confirmed Last Taken Type No Known Home Medications [No 12/11/19 12/11/19 Unknown History Reported Home Medications] Active Meds: Active Medications Acetaminophen (Tylenol) 650 mg PO Q4H PRN PRN Reason: Pain MILD(1-3)/Fever >100.5/GARCIA Last Admin: 12/10/19 02:02 Dose: 650 mg Documented by: Norepinephrine (Levophed Drip 4 Mg/Ns 250 Ml) 4 mg in 250 mls @ 7.5 mls/hr IV TITR RUBY; Protocol Last Titration: 12/10/19 08:00 Dose: 0 mcg/min, 0 mls/hr Documented by: Sodium Chloride (Nacl 0.9% 1000 Ml) 1,000 mls @ 75 mls/hr IV DIRECT [facility] Last Admin: 12/11/19 10:34 Dose: 75 mls/hr Documented by: Magnesium Hydroxide (Milk Of Magnesia) 30 ml PO Q4H PRN PRN Reason: Constipation Morphine Sulfate (Morphine) 2 mg IV Q4H PRN PRN Reason: Pain, Moderate (4-6) Last Admin: 12/11/19 10:34 Dose: 2 mg Documented by: Ondansetron HCl (Zofran) 4 mg IV Q8H PRN PRN Reason: Nausea And Vomiting Pantoprazole Sodium (Protonix) 40 mg IV BID [facility] Last Admin: 12/11/19 10:33 Dose: 40 mg Documented by: Sodium Chloride (Sodium Chloride Flush Syringe 10 Ml) 10 ml IV BID [facility] Last Admin: 12/11/19 10:36 Dose: 10 ml Documented by: Sodium Chloride (Sodium Chloride Flush Syringe 10 Ml) 10 ml IV PRN PRN PRN Reason: LINE FLUSH Review of Systems All systems: negative (as per HPI) Exam - Constitutional Vitals: Temp Pulse Resp BP Pulse Ox 98.4 F 78 14 116/56 96 12/11/19 03:34 12/11/19 12:00 12/11/19 12:00 12/11/19 03:30 12/11/19 12:00 General appearance: Present: mild distress, disheveled - EENT Eyes: Present: PERRL, EOM intact ENT: hearing intact - Respiratory Respiratory effort: pursed lips (intermittently) Respiratory: bilateral: CTA - Cardiovascular Rhythm: regular Heart Sounds: Present: S1 & S2 - Extremities Extremities: No edema - Abdominal General gastrointestinal: Present: soft, non-tender Results - Labs CBC & Chem 7: 12/11/19 Unknown 12/10/19 11:45 Labs: Abnormal lab results 12/09/19 12/11/19 Range/Units 17:39 Unknown WBC 11.5 H (4.5-11.0) K/mm3 RBC 3.52 L (3.65-5.03) M/mm3 Hgb 8.4 L (10.1-14.3) gm/dl Hct 27.0 L (30.3-42.9) % MCV 77 L (79-97) fl MCH 24 L (28-32) pg RDW 23.1 H (13.2-15.2) % Crossmatch See Detail Assessment and Plan 1. Microcytic anemia -profound and present for several years. No tani bleeding and, based on patient history, she has been scoped up and down x2 witho ut findings. We do not have any data as to whether or not she is iron deficient, but I suspect that she probably is. She may well have a malabsorptive process, and require chronic iron supplementation or IV iron supplementation. -Check stool for occult blood -Check iron stores and B12 -If H&H is stable, no further GI evaluation planned as an inpatient. She may be discharged and have outpatient follow-up with GI as well as with her primary care physician. Ultimately, she may well need to see a insurance account manager. -Living situation is challenging and I have encouraged her to engage with her children in helping with her care.
--- NOTE | 2019-12-11 18:17 | Progress Note ---
Assessment and Plan Severe anemia. Patient denies any hematemesis, melena or hematochezia. Continue transfusion of PRBCs. Follow-up H&H. Check occult stool. Microcytic anemia -transfused. Iron sat'n 8%, c/w iron deficiency. Anemia profound and present for several years. No tani bleeding and, based on patient history, she has been scoped up and down x2 without findings. She may well have a malabsorptive process, and require chronic iron supplementation or IV iron supplementation. -Check stool for occult blood - can be done as outpatient. -No further GI evaluation planned as an inpatient. She may be discharged and have outpatient follow-up with GI as well as with her primary care physician. Ultimately, she may well need to see a director of analytics. -Living situation is challenging and I have encouraged her to engage with her children in helping with her care. Hypotension. Etiology likely secondary to hypovolemia from severe anemia. Con tinue IV fluids and PRBCs. Rheumatoid arthritis. Continue home medications. Fall. PT/OT. Subjective Date of service: 12/11/19 Principal diagnosis: Severe anemia, hypotension, falls Interval history: Patient is symptomatically better after multiple blood transfusions and blood pressures improved. Patient has chronic anemia secondary to severe iron deficiency which may be because of poor iron intake or malabsorption process Objective - Constitutional Vitals: Vital Signs - 12hr 12/11/19 12/11/19 12/11/19 06:43 07:00 08:00 Pulse Rate 77 98 H Pulse Rate [ 80 Right Dorsalis Pedis] Respiratory 20 17 15 Rate Respiratory Rate [Back] Blood Pressure 103/43 136/80 O2 Sat by Pulse 96 93 Oximetry 12/11/19 12/11/19 12/11/19 09:00 10:00 10:34 Pulse Rate 73 82 Pulse Rate [ Right Dorsalis Pedis] Respiratory 18 15 15 Rate Respiratory 16 Rate [Back] Blood Pressure 96/49 101/52 O2 Sat by Pulse 95 94 Oximetry 12/11/19 12/11/19 12/11/19 11:00 11:04 12:00 Pulse Rate 85 83 Pulse Rate [ 78 Right Dorsalis Pedis] Respiratory 18 14 15 Rate Respiratory Rate [Back] Blood Pressure 125/71 124/62 O2 Sat by Pulse 78 L 96 Oximetry 12/11/19 12/11/19 12/11/19 13:00 14:00 15:00 Pulse Rate 87 81 78 Pulse Rate [ Right Dorsalis Pedis] Respiratory 17 16 15 Rate Respiratory Rate [Back] Blood Pressure 120/63 124/52 116/75 O2 Sat by Pulse 96 91 93 Oximetry 12/11/19 12/11/19 12/11/19 16:00 17:00 17:20 Pulse Rate 90 94 H Pulse Rate [ 86 Right Dorsalis Pedis] Respiratory 16 18 20 Rate Respiratory Rate [Back] Blood Pressure 138/70 138/70 O2 Sat by Pulse 93 84 Oximetry 12/11/19 17:50 Pulse Rate Pulse Rate [ Right Dorsalis Pedis] Respiratory 17 Rate Respiratory Rate [Back] Blood Pressure O2 Sat by Pulse Oximetry General appearance: Present: no acute distress, well-nourished - EENT Eyes: PERRL, EOM intact ENT: hearing intact, clear oral mucosa Ears: bilateral: normal - Neck Neck: supple, normal ROM - Respiratory Respiratory effort: normal Respiratory: bilateral: CTA - Breasts Breasts: normal - Cardiovascular Rhythm: regular Heart Sounds: Present: S1 & S2. Absent: gallop, rub Extremities: pulses intact, No edema, normal color, Full ROM - Gastrointestinal General gastrointestinal: Present: soft, non-tender, non-distended, normal bowel sounds - Genitourinary Female genitourinary: normal - Integumentary Integumentary: clear, warm, dry - Musculoskeletal Musculoskeletal: 1, strength equal bilaterally - Neurologic Neurologic: moves all extremities - Psychiatric Psychiatric: memory intact, appropriate mood/affect, intact judgment & insight - Labs CBC & Chem 7: 12/11/19 Unknown 12/10/19 11:45 Labs: Abnormal lab results 12/09/19 12/11/19 Range/Units 17:39 Unknown WBC 11.5 H (4.5-11.0) K/mm3 RBC 3.52 L (3.65-5.03) M/mm3 Hgb 8.4 L (10.1-14.3) gm/dl Hct 27.0 L (30.3-42.9) % MCV 77 L (79-97) fl MCH 24 L (28-32) pg RDW 23.1 H (13.2-15.2) % Crossmatch See Detail HEART Score - HEART Score Troponin: Troponin T < 0.010 ng/mL (0.00-0.029) 12/09/19 17:00
[2019-12-11 18:23] LABS: Iron 31 ug/dL (37-170); Total Iron Binding Capacity 379 mcg/dL (250-450)
[2019-12-12] MEDS: MORPHINE 2 MG/1 ML INJ IV PRN ×4 (04:11→17:39)
[2019-12-12] MEDS: SODIUM CHLORIDE 0.9% 1000 ML 1,000 ML IV SCH (04:11)
[2019-12-12] MEDS: PANTOPRAZOLE 40 MG INJ IV SCH (10:03)
--- NOTE | 2019-12-12 10:51 | Progress Note ---
Assessment and Plan 1. Microcytic anemia -transfused. Iron sat'n 8%, c/w iron deficiency. Anemia profound and present for several years. No tani bleeding and, based on patient history, she has been scoped up and down x2 without findings. She may well have a malabsorptive process, and require chronic iron supplementation or IV iron supplementation. -Check stool for occult blood - can be done as outpatient. -No further GI evaluation planned as an inpatient. She may be discharged and have outpatient follow-up with GI as well as with her primary care physician. Ultimately, she may well need to see a rubber calender helper. -Living situation is challenging and I have encouraged her to engage with her children in helping with her care. Will sign off. Please call as needed. Subjective Date of service: 12/12/19 Interval history: Pt complains of diffuse body aches. No new complaints. Transfused. Objective - Constitutional Vitals: Vital Signs - 12hr 12/11/19 12/12/19 12/12/19 23:33 00:00 03:58 Temperature 98.1 F 97.7 F Pulse Rate 87 77 74 Respiratory 18 18 Rate Blood Pressure 134/86 134/64 O2 Sat by Pulse 97 96 Oximetry 12/12/19 12/12/19 04:00 09:25 Temperature Pulse Rate 69 71 Respiratory Rate Blood Pressure O2 Sat by Pulse Oximetry General appearance: Present: no acute distress, mild distress - EENT Eyes: PERRL, EOM intact ENT: hearing intact - Respiratory Respiratory effort: normal - Gastrointestinal General gastrointestinal: Present: soft, non-tender - Labs CBC & Chem 7: 12/11/19 Unknown 12/10/19 11:45 Labs: Abnormal lab results 12/11/19 12/11/19 Range/Units 17:10 17:10 Iron 31 L (37-170) ug/dL Vitamin B12 998.8 H (211-911) pg/mL Medications & Allergies - Medications Allergies/Adverse Reactions: Allergies No Known Allergies Allergy (Verified 02/19/14 19:44) Home Medications: Home Medications Medication Instructions Recorded Confirmed Last Taken Type No Known Home Medications [No 12/11/19 12/11/19 Unknown History Reported Home Medications] Active Medications: Generic Name Dose Route Start Last Admin Trade Name Freq PRN Reason Stop Dose Admin Acetaminophen 650 mg 12/09/19 21:59 12/10/19 02:02 Tylenol PO 650 mg Q4H PRN Administration Pain MILD(1-3)/Fever >100.5/GARCIA Norepinephrine 4 mg in 250 mls @ 7.5 mls/hr 12/09/19 18:00 12/10/19 08:00 Levophed Drip 4 Mg/Ns 250 Ml IV 0 mcg/min TITR RUBY 0 mls/hr Titration Protocol 2 MCG/MIN Sodium Chloride 1,000 mls @ 75 mls/hr 12/09/19 22:00 12/12/19 04:11 Nacl 0.9% 1000 Ml IV 75 mls/hr DIRECT RUBY Administration Magnesium Hydroxide 30 ml 12/09/19 21:59 Milk Of Magnesia PO Q4H PRN Constipation Morphine Sulfate 2 mg 12/10/19 10:16 12/12/19 09:20 Morphine IV 2 mg Q4H PRN Administration Pain, Moderate (4-6) Ondansetron HCl 4 mg 12/09/19 21:59 Zofran IV Q8H PRN Nausea And Vomiting Pantoprazole Sodium 40 mg 12/10/19 11:00 12/12/19 10:03 Protonix IV 40 mg BID RUBY Administration Sodium Chloride 10 ml 12/09/19 22:00 12/12/19 10:03 Sodium Chloride Flush Syringe 10 Ml IV 10 ml BID RUBY Administration Sodium Chloride 10 ml 12/09/19 21:59 Sodium Chloride Flush Syringe 10 Ml IV PRN PRN LINE FLUSH HEART Score - HEART Score Troponin: Troponin T < 0.010 ng/mL (0.00-0.029) 12/09/19 17:00
--- NOTE | 2019-12-12 12:46 | Progress Note ---
Assessment and Plan Patient awake and weak. Still complaining shortness of breath. Patient is on 2 litres O2. O2 saturation 96%. Patient has history of COPD . patient smoked 1 pack cigaretts for thirty years. Says stopped smoking 6 weeks ago. Denies alcohol or drug abuse. Patient house most of her life. Patient . Has 4 children. No Known drug allergies. - Patient Problems (1) Shortness of breath Current Visit: No Status: Acute Plan to address problem: O2 2 litres via nasal canula. Recommend Albuterol/atrovent aerosol treatment q 6 hours prn for shortness of breath. Recommend Brovanna/Budesonide aerosol treatments q 12 hours. SCDs Continue Protonix ABGs on room air. (2) COPD (chronic obstructive pulmonary disease) Current Visit: Yes Status: Acute Plan to address problem: O2 2 litres via nasal canula. Recommend Albuterol/atrovent aerosol treatment q 6 hours prn for shortness of breath. Recommend Brovanna/Budesonide aerosol treatments q 12 hours. SCDs Continue Protonix. ABGs on room air. (3) Pulmonary nodule, left Current Visit: No Status: Acute Plan to address problem: Repeat CAT scan of chest in 2 or 3 months. (4) Hypotension Current Visit: Yes Status: Acute Qualifiers: Hypotension type: unspecified hypotension type Qualified Code(s): I95.9 - Hypotension, unspecified Plan to address problem: Improved. Recent blood pressure 134/64. (5) Light-headedness Current Visit: Yes Status: Acute Plan to address problem: Likely from hypotension. Patients blood pressure improved. Management as per primary care. (6) Abdominal pain Current Visit: Yes Status: Acute Qualifiers: Abdominal location: lower abdomen, unspecified Qualified Code(s): R10.30 - Lower abdominal pain, unspecified Plan to address problem: Management as per primary care, GI and Surgery. (7) Acute blood loss anemia Current Visit: No Status: Acute Plan to address problem: Patient received blood transfusion. To days HGB 8.4 (8) GI bleed Current Visit: No Status: Acute Plan to address problem: Management as per Gastroenterology. (9) Rheumatoid arthritis Current Visit: No Status: Chronic Qualifiers: Rheumatoid arthritis location: hand Laterality: bilateral Plan to address problem: Management as per primary care. Subjective Date of service: 12/12/19 Interval history: Patient awake and weak. Still complaining shortness of breath. Patient is on 2 litres O2. O2 saturation 96%. Patient has history of COPD . patient smoked 1 pack cigaretts for thirty years. Says stopped smoking 6 weeks ago. Denies alcohol or drug abuse. Patient house most of her life. Patient . Has 4 children. No Known drug allergies. Objective Vital Signs - 12hr 12/12/19 12/12/19 12/12/19 03:58 04:00 09:25 Temperature 97.7 F Pulse Rate 74 69 71 Respiratory 18 Rate Blood Pressure 134/64 O2 Sat by Pulse 96 Oximetry Constitutional: alert, appears uncomfortable, other (atraumatic, normocephalic, chronically ill looking woman) Eyes: non-icteric ENT: oropharynx dry, other (RIJ CVC) Neck: supple, no lymphadenopathy, no JVD Effort: normal Ascultation: Bilateral: diminished breath sounds Cardiovascular: regular rate and rhythm, other (S1,S2) Gastrointestinal: normoactive bowel sounds, soft, non-tender, non-distended Integumentary: other (joint deformities, see admission photographs) Extremities: pink and warm, other (Extremities: no ischemia, pulses intact, pulses symmetrical, No edema, Full ROM ) Neurologic: normal mental status, pupils equal and round, CN II-XII normal, mo tor strength normal and Psychiatric: anxious, other (in pain and uncomfortable) CBC and BMP: 12/11/19 Unknown 12/10/19 11:45 ABG, PT/INR, D-dimer: PT/INR, D-dimer PT 17.4 Sec. (12.2-14.9) H 12/10/19 11:45 INR 1.46 (0.87-1.13) H 12/10/19 11:45 Abnormal lab findings: Abnormal Labs 12/09/19 12/09/19 12/09/19 17:00 17:00 17:39 WBC 26.2 H RBC 1.88 L Hgb 3.4 L* Hct 12.9 L* MCV 69 L MCH 18 L MCHC 26 L RDW 20.7 H Plt Count Lymph % (Auto) Seg Neutrophils % Seg Neuts % (Manual) 87.0 H Lymphocytes % (Manual) 5.0 L Monocytes % (Manual) 8.0 H Seg Neutrophils # Seg Neutrophils # Man 22.8 H Monocytes # (Manual) 2.1 H PT INR Sodium 134 L Carbon Dioxide 18 L Creatinine Calcium 7.3 L Iron ALT 5 L Albumin 2.5 L Vitamin B12 Crossmatch See Detail 12/09/19 12/10/19 12/10/19 22:50 11:45 11:45 WBC 28.5 H 18.4 H RBC 3.01 L 3.61 L Hgb 6.3 L 8.5 L Hct 21.7 L D 27.6 L MCV 72 L 77 L MCH 21 L 24 L MCHC 29 L RDW 20.4 H 23.2 H Plt Count 473 H Lymph % (Auto) 7.1 L Seg Neutrophils % 89.1 H Seg Neuts % (Manual) 90.0 H Lymphocytes % (Manual) 5.5 L Monocytes % (Manual) Seg Neutrophils # 16.4 H Seg Neutrophils # Man 25.7 H Monocytes # (Manual) 1.1 H PT 17.4 H INR 1.46 H Sodium Carbon Dioxide Creatinine Calcium Iron ALT Albumin Vitamin B12 Crossmatch 12/10/19 12/11/19 12/11/19 11:45 17:10 17:10 WBC RBC Hgb Hct MCV MCH MCHC RDW Plt Count Lymph % (Auto) Seg Neutrophils % Seg Neuts % (Manual) Lymphocytes % (Manual) Monocytes % (Manual) Seg Neutrophils # Seg Neutrophils # Man Monocytes # (Manual) PT INR Sodium Carbon Dioxide 21 L Creatinine 0.6 L Calcium 7.5 L Iron 31 L ALT Albumin Vitamin B12 998.8 H Crossmatch 12/11/19 Unknown WBC 11.5 H RBC 3.52 L Hgb 8.4 L Hct 27.0 L MCV 77 L MCH 24 L MCHC RDW 23.1 H Plt Count Lymph % (Auto) Seg Neutrophils % Seg Neuts % (Manual) Lymphocytes % (Manual) Monocytes % (Manual) Seg Neutrophils # Seg Neutrophils # Man Monocytes # (Manual) PT INR Sodium Carbon Dioxide Creatinine Calcium Iron ALT Albumin Vitamin B12 Crossmatch Chest x-ray: report reviewed, image reviewed Additional Studies: CHEST 1 VIEW 12/09/2019 11:04 PM INDICATION / CLINICAL INFORMATION: cvl placement. COMPARISON: Chest x-ray 12/09/2019 FINDINGS: SUPPORT DEVICES: New right IJ central line has tip overlying SVC. HEART / MEDIASTINUM: No significant abnormality. LUNGS / PLEURA: No significant pulmonary or pleural abnormality. No pneumothorax. ADDITIONAL FINDINGS: Moderate degenerative arthrosis both shoulders IMPRESSION: 1. No acute findings. Signer Name: Carlin Campos MD Signed: 12/10/2019 12:23 AM Workstation Name: [id number] Allied health notes reviewed: nursing
--- NOTE | 2019-12-12 17:23 | Discharge Summary ---
Providers - Providers Date of Admission: 12/09/19 21:23 Date of discharge: 12/12/19 Attending physician: JEEVAN PAZ 12/10/19 03:17 Consult to Physician [CONS] Routine Comment: Consulting Provider: JULIA DAVIS Physician Instructions: Reason For Exam: SEVERE ANEMIA,HYPOTENSION-ON LEVOPHED 12/10/19 10:15 Consult to Physician [CONS] Routine Comment: Consulting Provider: PETERSON MARK Physician Instructions: Reason For Exam: severe anemia [facility] Hospital[facility] Condition: Critical Hospital course: Date of service: 12/12/19 Principal diagnosis: Severe anemia, hypotension, falls Interval history: Patient is symptomatically better after multiple blood transfusions and blood pressures improved. Patient has chronic anemia secondary to severe iron deficiency which may be because of poor iron intake or malabsorption process Severe anemia. Patient denies any hematemesis, melena or hematochezia. Continue transfusion of PRBCs. Follow-up H&H. Check occult stool. Microcytic anemia -transfused. Iron sat'n 8%, c/w iron deficiency. Anemia profound and present for several years. No tani bleeding and, based on patient history, she has been scoped up and down x2 without findings. She may well have a malabsorptive process, and require chronic iron supplementation or IV iron supplementation. -Check stool for occult blood - can be done as outpatient. -No further GI evaluation planned as an inpatient. She may be discharged and have outpatient follow-up with GI as well as with her primary care physician. Ultimately, she may well need to see a bath design sales consultant. -Living situation is challenging and I have encouraged her to engage with her children in helping with her care. Hypotension. Etiology likely secondary to hypovolemia from severe anemia. Continue IV fluids and PRBCs. Rheumatoid arthritis. Continue home medications. Fall. PT/OT. Discharge diagnosis Symptomatic anemia Severe iron deficiency anemia Hypotension resolved Hypovolemia resolved after IV fluids Rheumatoid arthritis continue analgesics [place] home health and physical therapy Disposition: DC-01 TO HOME OR SELFCARE Core Measure Documentation - Palliative Care Palliative Care/ Comfort Measures: Not Applicable - Core Measures Any of the following diagnoses?: none Exam - Constitutional Vitals: Temp Pulse Resp BP Pulse Ox 97.7 F 71 18 134/64 96 12/12/19 03:58 12/12/19 09:25 12/12/19 03:58 12/12/19 03:58 12/12/19 03:58 General appearance: Present: no acute distress, well-nourished - EENT Eyes: Present: PERRL ENT: hearing intact, clear oral mucosa - Neck Neck: Present: supple, normal ROM - Respiratory Respiratory effort: normal Respiratory: bilateral: CTA - Cardiovascular Heart rate: 78 Rhythm: regular Heart Sounds: Present: S1 & S2. Absent: rub, click - Extremities Extremities: no ischemia, pulses symmetrical, No edema Peripheral Pulses: within normal limits - Abdominal General gastrointestinal: Present: soft, non-tender, non-distended, normal bowel sounds Female genitourinary: Present: normal - Integumentary Integumentary: Present: clear, warm, dry - Musculoskeletal Musculoskeletal: gait normal, strength equal bilaterally - Psychiatric Psychiatric: appropriate mood/affect, intact judgment & insight - Neurologic Neurologic: CNII-XII intact, moves all extremities - Allied Health Allied health notes reviewed: nursing, case management Plan Activity: no restrictions Diet: regular Follow up with: SERA TORREZ MD [Primary Care Provider] - 7 Days
[2019-12-12] MEDS: ACETAMINOPHEN 325 MG TAB PO PRN (21:28)
[2019-12-13 09:39] VITALS: BP 117/61
[2019-12-13] MEDS ORDERED: PANTOPRAZOLE 40 MG TAB PO SCH (10:00)
[2019-12-13] MEDS: ACETAMINOPHEN 325 MG TAB PO PRN (10:21)
--- NOTE | 2019-12-13 10:47 | Progress Note ---
Assessment and Plan Patient awake and weak. Still complaining shortness of breath. Patient is on 2 litres O2. O2 saturation 96%. Patient has history of COPD . patient smoked 1 pack cigaretts for thirty years. Says stopped smoking 6 weeks ago. Denies alcohol or drug abuse. Patient house most of her life. Patient . Has 4 children. No Known drug allergies. - Patient Problems (1) Shortness of breath Current Visit: No Status: Acute Plan to address problem: O2 2 litres via nasal canula. Recommend Albuterol/atrovent aerosol treatment q 6 hours prn for shortness of breath. Recommend Brovanna/Budesonide aerosol treatments q 12 hours. SCDs Continue Protonix ABGs on room air. (2) COPD (chronic obstructive pulmonary disease) Current Visit: Yes Status: Acute Plan to address problem: O2 2 litres via nasal canula. Recommend Albuterol/atrovent aerosol treatment q 6 hours prn for shortness of breath. Recommend Brovanna/Budesonide aerosol treatments q 12 hours. SCDs Continue Protonix. ABGs on room air. (3) Pulmonary nodule, left Current Visit: No Status: Acute Plan to address problem: Repeat CAT scan of chest in 2 or 3 months. (4) Hypotension Current Visit: Yes Status: Acute Qualifiers: Hypotension type: unspecified hypotension type Qualified Code(s): I95.9 - Hypotension, unspecified Plan to address problem: Improved. Recent blood pressure 134/64. (5) Light-headedness Current Visit: Yes Status: Acute Plan to address problem: Likely from hypotension. Patients blood pressure improved. Management as per primary care. (6) Abdominal pain Current Visit: Yes Status: Acute Qualifiers: Abdominal location: lower abdomen, unspecified Qualified Code(s): R10.30 - Lower abdominal pain, unspecified Plan to address problem: Management as per primary care, GI and Surgery. (7) Acute blood loss anemia Current Visit: No Status: Acute Plan to address problem: Patient received blood transfusion. To days HGB 8.4 (8) GI bleed Current Visit: No Status: Acute Plan to address problem: Management as per Gastroenterology. (9) Rheumatoid arthritis Current Visit: No Status: Chronic Qualifiers: Rheumatoid arthritis location: hand Laterality: bilateral Plan to address problem: Management as per primary care. Subjective Date of service: 12/13/19 Principal diagnosis: Severe anemia, hypotension, falls Interval history: Patient awake and weak. Still complaining shortness of breath. Patient is on 2 litres O2. O2 saturation 96%. Patient has history of COPD . patient smoked 1 pack cigaretts for thirty years. Says stopped smoking 6 weeks ago. Denies alcohol or drug abuse. Patient house most of her life. Patient . Has 4 children. No Known drug allergies. Objective Vital Signs - 12hr 12/12/19 12/13/19 12/13/19 23:53 02:00 04:45 Temperature 98.4 F 98.0 F Pulse Rate 67 67 Pulse Rate [ 91 H Right Dorsalis Pedis] Respiratory 18 18 Rate Blood Pressure 132/67 122/67 O2 Sat by Pulse 94 95 97 Oximetry 12/13/19 07:23 Temperature 98.1 F Pulse Rate 73 Pulse Rate [ Right Dorsalis Pedis] Respiratory 18 Rate Blood Pressure 117/61 O2 Sat by Pulse 95 Oximetry Constitutional: alert, appears uncomfortable, other (atraumatic, normocephalic, chronically ill looking woman) Eyes: non-icteric ENT: oropharynx dry, other (RIJ CVC) Neck: supple, no lymphadenopathy, no JVD Effort: normal Ascultation: Bilateral: diminished breath sounds Cardiovascular: regular rate and rhythm, other (S1,S2) Gastrointestinal: normoactive bowel sounds, soft, non-tender, non-distended Integumentary: other (joint deformities, see admission photographs) Extremities: pink and warm, other (Extremities: no ischemia, pulses intact, pulses symmetrical, No edema, Full ROM ) Neurologic: normal mental status, pupils equal and round, CN II-XII normal, motor strength normal and Psychiatric: anxious, other (in pain and uncomfortable) CBC and BMP: 12/11/19 Unknown 12/10/19 11:45 ABG, PT/INR, D-dimer: PT/INR, D-dimer PT 17.4 Sec. (12.2-14.9) H 12/10/19 11:45 INR 1.46 (0.87-1.13) H 12/10/19 11:45 Abnormal lab findings: Abnormal Labs 12/09/19 12/09/19 12/09/19 17:00 17:00 17:39 WBC 26.2 H RBC 1.88 L Hgb 3.4 L* Hct 12.9 L* MCV 69 L MCH 18 L MCHC 26 L RDW 20.7 H Plt Count Lymph % (Auto) Seg Neutrophils % Seg Neuts % (Manual) 87.0 H Lymphocytes % (Manual) 5.0 L Monocytes % (Manual) 8.0 H Seg Neutrophils # Seg Neutrophils # Man 22.8 H Monocytes # (Manual) 2.1 H PT INR Sodium 134 L Carbon Dioxide 18 L Creatinine Calcium 7.3 L Iron ALT 5 L Albumin 2.5 L Vitamin B12 Crossmatch See Detail 12/09/19 12/10/19 12/10/19 22:50 11:45 11:45 WBC 28.5 H 18.4 H RBC 3.01 L 3.61 L Hgb 6.3 L 8.5 L Hct 21.7 L D 27.6 L MCV 72 L 77 L MCH 21 L 24 L MCHC 29 L RDW 20.4 H 23.2 H Plt Count 473 H Lymph % (Auto) 7.1 L Seg Neutrophils % 89.1 H Seg Neuts % (Manual) 90.0 H Lymphocytes % (Manual) 5.5 L Monocytes % (Manual) Seg Neutrophils # 16.4 H Seg Neutrophils # Man 25.7 H Monocytes # (Manual) 1.1 H PT 17.4 H INR 1.46 H Sodium Carbon Dioxide Creatinine Calcium Iron ALT Albumin Vitamin B12 Crossmatch 12/10/19 12/11/19 12/11/19 11:45 17:10 17:10 WBC RBC Hgb Hct MCV MCH MCHC RDW Plt Count Lymph % (Auto) Seg Neutrophils % Seg Neuts % (Manual) Lymphocytes % (Manual) Monocytes % (Manual) Seg Neutrophils # Seg Neutrophils # Man Monocytes # (Manual) PT INR Sodium Carbon Dioxide 21 L Creatinine 0.6 L Calcium 7.5 L Iron 31 L ALT Albumin Vitamin B12 998.8 H Crossmatch 12/11/19 Unknown WBC 11.5 H RBC 3.52 L Hgb 8.4 L Hct 27.0 L MCV 77 L MCH 24 L MCHC RDW 23.1 H Plt Count Lymph % (Auto) Seg Neutrophils % Seg Neuts % (Manual) Lymphocytes % (Manual) Monocytes % (Manual) Seg Neutrophils # Seg Neutrophils # Man Monocytes # (Manual) PT INR Sodium Carbon Dioxide Creatinine Calcium Iron ALT Albumin Vitamin B12 Crossmatch Allied health notes reviewed: nursing
== END 2019-12-13 13:52 | disposition home health service (06) | DRG 812 ==
LOC: ED 15:50 → CC1 21:23 → 4A 12-11 20:53
PROVIDERS: ADMIT Internal Medicine Geriatric Medicine; ATTEND Internal Medicine
PROC: 30233N1 Transfusion of Nonautologous Red Blood Cells into Peripheral Vein, Percutaneous Approach (ICD-10-PCS; principal; 2019-12-09)
DX: D50.9 Iron deficiency anemia, unspecified (principal); I95.9 Hypotension, unspecified; D62 Acute posthemorrhagic anemia; D64.9 Anemia, unspecified; I10 Essential (primary) hypertension; M19.90 Unspecified osteoarthritis, unspecified site; J44.9 Chronic obstructive pulmonary disease, unspecified; Z96.651 Presence of right artificial knee joint; W18.39XA Other fall on same level, initial encounter; M06.842 Other specified rheumatoid arthritis, left hand; M06.841 Other specified rheumatoid arthritis, right hand; E86.1 Hypovolemia; F17.200 Nicotine dependence, unspecified, uncomplicated; R91.8 Other nonspecific abnormal finding of lung field; Z98.51 Tubal ligation status; Y93.89 Activity, other specified; Y92.89 Other specified places as the place of occurrence of the external cause; Y99.8 Other external cause status
CPT/HCPCS: 36415; 70450; 71045; 71275; 74174; 80048; 80053; 80307; 81001; 82140; 82550; 82553; 82607; 82728; 83550; 84484; 85007; 85025; 85027; 85610; 86850; 86900; 86901; 86920; 87040; 87086; 93005; 96361; 96365; 96375; 96376; 99292; G0378; C9113; J0692; J1170; J1885; J2270; J7030; J7040; J7050; P9016; Q9967